=== PATIENT | female | born 1940 | race Caucasian/White ===

== ENCOUNTER 2022-12-04 13:18 | Inpatient (IN) ==
[2022-12-04 15:31] LABS: Basophils # (auto) 0.04 K/uL (0-0.2); Basophils % (auto) 0.3 %; Eosinophils # (auto) 0.16 K/uL (0-0.50); Eosinophils % (auto) 1.3 %; Hematocrit (blood only) 34.9 % (37.0-47.0); Hemoglobin 11.4 g/dl (12.0-16.0); Immature Granulocytes # (auto) 0.05 K/uL (0.01-0.20); Immature Granulocytes % (auto) 0.4 %; Lymphocytes % (auto) 12.6 %; Mean Corpuscular Hemoglobin 28.6 pg (25.0-34.0); Mean Corpuscular Hgb Conc 32.7 g/dL (32.0-36.0); Mean Corpuscular Volume 87.7 fL (80.0-100.0); Mean Platelet Volume 9.5 fL (9.4-12.4); Monocytes # (auto) 0.61 K/uL (0.11-0.59); Monocytes % (auto) 5.1 %; Neutrophils # (auto) 9.53 K/uL (1.40-6.50); Neutrophils % (auto) 80.3 %; Platelet Count 325 K/uL (130-400); RDW Coefficient of Variation 14.8 % (11.5-14.5); RDW Standard Deviation 47.6 fL (36.4-46.3); Red Blood Count 3.98 M/uL (4.20-5.40); White Blood Count 11.89 K/ul (4.8-10.8)
[2022-12-04 15:39] LABS: Alanine Aminotransferase 13 U/L (7-52); Albumin Level 4.2 gm/dl (3.4-5.0); Alkaline Phosphatase 40 U/L (34-104); Anion Gap 7 (3-11); Aspartate Aminotransferase 16 U/L (13-39); BUN Creatinine Ratio 34.4 (10-20); Bilirubin,Total 0.5 mg/dl (0.2-1.0); Blood Urea Nitrogen 31 mg/dl (6-23); Calcium 10.1 mg/dl (8.5-10.1); Carbon Dioxide 30 mmol/L (21-32); Chloride 98 mmol/L (98-107); Est GFR (Non-African American) 60.4 ml/min; Globulin 4.2 gm/dl (2.5-4.0); Glucose 104 mg/dl (70-99(Fasting)); Potassium 4.5 mmol/L (3.5-5.1); Sodium 135 mmol/L (136-145); Total Protein 8.4 gm/dl (6.0-8.3)
--- NOTE | 2022-12-04 16:28 | Emergency Department Note ---
Impression & Plan Decubitus ulcer of sacral area, Atrial fibrillation, Hypoxia, Subtherapeutic international normalized ratio (INR) ED Provider Note ED Provider Note NAME: BIANCA FLORENCE AGE:82 SEX: Female : 1940 ARRIVES VIA: Private vehicle INFORMANT: Patient ED PROVIDER(s): Hellen Jarvis DO CHIEF COMPLAINT: Worsening sacral wound HPI: This is an 82-year-old female who presents emergency department due to concern for worsening sacral wound. Patient states she has had a wound for the last 3 years. She has been to her family doctor several times about this and they have never sent her for any specialist or wound care evaluation. She states she has noticed recently and now has increased drainage and a foul smelling discharge. She denies any increased pain. She denies fevers or chills. Patient is anticoagulated due to history of atrial fibrillation. No other changes to her overall health. Patient initially seen in the B pod sub[place] while seated in a wheelchair. PAST MEDICAL HISTORY:See Below PAST SURGICAL HISTORY:See Below FAMILY HISTORY:See Below SOCIAL HISTORY:See Below HOME MEDICATIONS:See Below ALLERGIES:See Below VITALS:See Below PHYSICAL EXAMINATION: GENERAL: alert, well appearing, well nourished, no distress, non-toxic EYE EXAM: normal conjunctiva, PERRL and EOM's grossly intact OROPHARYNX: no exudate, no erythema, lips, buccal mucosa, and tongue normal and mucous membranes are moist NECK: supple, no nuchal rigidity, no adenopathy, non-tender LUNGS: Clear to auscultation. Normal chest wall mechanics, no w/r/r HEART: no murmurs, S1 normal and S2 normal ABDOMEN: abdomen soft, non-tender, normo-active bowel sounds, no masses, no rebound or guarding. BACK: Back is symmetrical on inspection and there is no deformity, no midline tenderness, no CVA tenderness. SKIN: no rashes, petechiae, orbruising UPPER EXTREMITIES: upper extremities are grossly normal. FROM, nml pulses b/l. LOWER EXTREMITIES: No pitting edema. FROM, nml pulses b/l. NEURO EXAM: Normal sensorium, cranial nerves II-XII grossly intact, normal speech, no facial droop,nogross weakness of arms, no gross weakness of legs. Gross sensation intact. No ataxia. Vital Signs: reviewed and remarkable Differential Diagnosis: [] MEDICAL DECISION MAKING: This is an 82 yo female who presents to the ER due to concern for possible infection at chronic sacral decub ulcer. Patient afebrile, VS stable. Labs drawn and sent and IV established per nursing protocol prior to my evaluation as she presented on a day of high volume and acuity. Additional labs added following my initial exam in the waiting room. After she was placed in a regular room, the wound was examined, culture obtained, and after discussion, pt sent for CT imaging. CT without abscess or evidence of osteomyelitis. In the interim, pt had a brief episode of hypoxia, but denied SOB or CP. No recent URI symptoms. After attempting to wean her, she dropped her sats again. Given unclear etiology and subtherapeutic INR, CT chest ordered to r/o PE or infection. VS otw stable throughout. Case discussed with hospitalist for additional evaluation. Patient aware of all results, verbalized understanding and was in agreement with the plan. Consultation(s): 2054: Disucssed with Dr. Hansen. ER Treatment Provided: See below 1721: Patient now on room C3 and in a gown. She was examined at bedside. Sacral wound extensive approximately 6 cm in diameter through the subcutaneous tissue. Scant drainage noted. Wound culture collected. 2031: Patient updated at bedside. She was noted by nursing staff to be hypoxic to 88% was placed on 2 L. Patient denied any shortness of breath. I did atte mpt to wean patient back off oxygen, unfortunately she desaturated to 86% again. She denies chest pain or sense of being short of breath. Diagnostics Interpreted By Me: -ECG: [] -Cardiac Monitoring: An order was placed for continuous cardiac monitoring. The monitor shows a rate of 88 with atrial fibrillation rhythm. -Laboratory studies: As stated above and show below. -Imaging studies: [] Triage Nursing Note Reviewed Prior/Outside Records Reviewed Procedures: [] Critical Care: [] Past Med/Surg History Medical History (Updated 12/05/22 @ 14:18 by Hellen Jarvis DO) Atrial fibrillation Decubitus ulcer of sacral area Degenerative disc disease, lumbar DM type 2 (diabetes mellitus, type 2) HLD (hyperlipidemia) HTN (hypertension) Lumbar stenosis Spinal stenosis Surgical History (Updated 12/04/22 @ 21:10 by PAVITHRA Pedro-C) Hx of cervical spine surgery Social History Smoking Status: Never smoker Hx Alcohol Use: No Hx Substance Use: No Preferred Language: [place] Islander Communication Ability: Effective Goggles Assembler Required: No Beliefs That Will Affect Care: None Current Living Situation: Alone Current Living Situation Comment: Lives in house Feels Safe at Home: Yes Safety Concerns: Feels Safe At This Time Assistive Devices: Scooter/Electric Scooter Allergies Allergies Allergy/AdvReac Type Severity Reaction Status Date / Time cortisone Allergy Unknown unknown Verified 12/04/22 21:17 Home Meds Home Medications Medication Instructions Recorded Confirmed acetaminophen 500 mg tablet 1,000 mg PO Q6H PRN Pain 12/04/22 12/04/22 (Tylenol Extra Strength) aspirin 81 mg tablet,delayed 81 mg PO DAILY 12/04/22 12/04/22 release carvedilol 25 mg tablet 25 mg PO BID 12/04/22 12/04/22 citalopram 20 mg tablet 20 mg PO DAILY 12/04/22 12/04/22 cyanocobalamin (vitamin B-12) 100 1,000 mcg PO DAILY 12/04/22 12/04/22 mcg tablet (Vitamin B-12) digoxin 125 mcg (0.125 mg) tablet 0.125 mg PO DAILY 12/04/22 12/04/22 gabapentin 100 mg capsule 100 mg PO HS 12/04/22 12/04/22 losartan 50 mg tablet 50 mg PO DAILY 12/04/22 12/04/22 metformin 850 mg tablet 850 mg PO BID 12/04/22 12/04/22 nitrofurantoin 100 mg PO DAILY 12/04/22 12/04/22 monohydrate/macrocrystals 100 mg capsule pioglitazone 30 mg tablet 30 mg PO DAILY 12/04/22 12/04/22 vit no.95-ferrous 1 tab PO DAILY 12/04/22 12/04/22 fumarate 28 mg-folic acid 800 mcg tablet () triamterene 37.5 1 cap PO DAILY 12/04/22 12/04/22 mg-hydrochlorothiazide 25 mg capsule warfarin 6 mg tablet (Jantoven) 3 - 6 mg PO DIRECTED 12/04/22 12/04/22 Results & Data (ED) Vital Signs Vital Signs - 24 hr 12/04/22 16:41 12/04/22 17:00 12/04/22 18:13 Pulse Rate 72 Pulse Rate [Apical] 90 Respiratory Rate 18 Respiratory Depth Blood Pressure [Right Arm] 152/73 H Blood Pressure Mean [Right Arm] 99 Pulse Oximetry 91 88 L Oxygen Delivery Method Room Air Oxygen Flow Rate Oxygen Flow Rate - Titration 2 Pulse Oximetry Post Tiitration 95 12/04/22 19:00 12/04/22 20:46 Pulse Rate 86 Pulse Rate [Apical] 80 Respiratory Rate 18 Respiratory Depth Normal Blood Pressure [Right Arm] 158/79 H Blood Pressure Mean [Right Arm] 105 Pulse Oximetry 99 Oxygen Delivery Method Nasal Cannula Oxygen Flow Rate 2 Oxygen Flow Rate - Titration Pulse Oximetry Post Tiitration Laboratory Data 12/04/22 15:10 12/04/22 15:10 Lab Results 12/04/22 12/04/22 12/04/22 Range/Units 15:10 15:10 18:16 WBC 11.89 H (4.8-10.8) K/ul RBC 3.98 L (4.20-5.40) M/uL Hgb 11.4 L (12.0-16.0) g/dl Hct 34.9 L (37.0-47.0) % MCV 87.7 (80.0-100.0) fL MCH 28.6 (25.0-34.0) pg MCHC 32.7 (32.0-36.0) g/dL RDW Std Deviation 47.6 H (36.4-46.3) fL RDW Coeff of Ankush 14.8 H (11.5-14.5) % Plt Count 325 (130-400) K/uL MPV 9.5 (9.4-12.4) fL Immature Gran % (Auto) 0.4 % Neut % (Auto) 80.3 % Lymph % (Auto) 12.6 % Latimer % (Auto) 5.1 % Eos % (Auto) 1.3 % Baso % (Auto) 0.3 % Neut # (Auto) 9.53 H (1.40-6.50) K/uL Lymph # (Auto) 1.50 (1.2-3.4) K/uL Latimer # (Auto) 0.61 H (0.11-0.59) K/uL Eos # (Auto) 0.16 (0-0.50) K/uL Baso # (Auto) 0.04 (0-0.2) K/uL Immature Gran # (Auto) 0.05 (0.01-0.20) K/uL PT 17.7 H (9.0-12.0) Seconds INR 1.7 H (0.9-1.1) ABG pH (7.35-7.45) ABG pCO2 (35-46) mmHg ABG pO2 (80-95) mmHg ABG HCO3 (19-24) mmol/L ABG O2 Saturation (90-95) % ABG Base Excess (-9-1.8) mEq/L Harshal Test (Pos) Oxygen Given Sodium 135 L (136-145) mmol/L Potassium 4.5 (3.5-5.1) mmol/L Chloride 98 (98-107) mmol/L Carbon Dioxide 30 (21-32) mmol/L Anion Gap 7 (3-11) BUN 31 H (6-23) mg/dl Creatinine 0.90 (0.6-1.2) mg/dl Est Cr Clr Drug Dosing Not Reportable Est GFR ( Amer) 70.0 ml/min Est GFR (Non-Af Amer) 60.4 ml/min BUN/Creatinine Ratio 34.4 H (10-20) Glucose 104 H (70-99(Fasting)) mg/dl Calcium 10.1 (8.5-10.1) mg/dl Magnesium (1.7-2.4) mg/dl Total Bilirubin 0.5 (0.2-1.0) mg/dl AST 16 (13-39) U/L ALT 13 (7-52) U/L Alkaline Phosphatase 40 (34-104) U/L Troponin I High Sens (0-14) pg/ml Total Protein 8.4 H (6.0-8.3) gm/dl Albumin 4.2 (3.4-5.0) gm/dl Globulin 4.2 H (2.5-4.0) gm/dl Albumin/Globulin Ratio 1.0 (0.9-2) Digoxin (0.8-2.0) ng/ml 12/04/22 12/04/22 12/04/22 Range/Units 21:06 21:06 21:06 WBC (4.8-10.8) K/ul RBC (4.20-5.40) M/uL Hgb (12.0-16.0) g/dl Hct (37.0-47.0) % MCV (80.0-100.0) fL MCH (25.0-34.0) pg MCHC (32.0-36.0) g/dL RDW Std Deviation (36.4-46.3) fL RDW Coeff of Ankush (11.5-14.5) % Plt Count (130-400) K/uL MPV (9.4-12.4) fL Immature Gran % (Auto) % Neut % (Auto) % Lymph % (Auto) % Latimer % (Auto) % Eos % (Auto) % Baso % (Auto) % Neut # (Auto) (1.40-6.50) K/uL Lymph # (Auto) (1.2-3.4) K/uL Latimer # (Auto) (0.11-0.59) K/uL Eos # (Auto) (0-0.50) K/uL Baso # (Auto) (0-0.2) K/uL Immature Gran # (Auto) (0.01-0.20) K/uL PT (9.0-12.0) Seconds INR (0.9-1.1) ABG pH 7.48 H (7.35-7.45) ABG pCO2 46 (35-46) mmHg ABG pO2 93 (80-95) mmHg ABG HCO3 34 H (19-24) mmol/L ABG O2 Saturation 99.3 H (90-95) % ABG Base Excess 9.4 H (-9-1.8) mEq/L Harshal Test Pos (Pos) Oxygen Given 2L Sodium (136-145) mmol/L Potassium (3.5-5.1) mmol/L Chloride (98-107) mmol/L Carbon Dioxide (21-32) mmol/L Anion Gap (3-11) BUN (6-23) mg/dl Creatinine (0.6-1.2) mg/dl Est Cr Clr Drug Dosing Est GFR ( Amer) ml/min Est GFR (Non-Af Amer) ml/min BUN/Creatinine Ratio (10-20) Glucose (70-99(Fasting)) mg/dl Calcium (8.5-10.1) mg/dl Magnesium 2.0 (1.7-2.4) mg/dl Total Bilirubin (0.2-1.0) mg/dl AST (13-39) U/L ALT (7-52) U/L Alkaline Phosphatase (34-104) U/L Troponin I High Sens 8.6 (0-14) pg/ml Total Protein (6.0-8.3) gm/dl Albumin (3.4-5.0) gm/dl Globulin (2.5-4.0) gm/dl Albumin/Globulin Ratio (0.9-2) Digoxin 1.2 (0.8-2.0) ng/ml Administered Medications Aspirin (Aspirin 81 Mg Ectab) 81 mg PO DAILY MIKE Stop: 01/04/23 08:59 Last Admin: 12/05/22 08:31 Dose: 81 mg Documented By: POLA Carvedilol (Carvedilol 12.5 Mg Tab) 12.5 mg PO BID MIKE Stop: 01/04/23 01:30 Last Admin: 12/05/22 08:30 Dose: Not Given Documented By: Admin: 12/05/22 02:15 Dose: 12.5 mg Documented By: HANK Citalopram Hydrobromide (Citalopram 20 Mg Tab) 20 mg PO DAILY MIKE Stop: 01/04/23 08:59 Last Admin: 12/05/22 08:31 Dose: 20 mg Documented By: POLA Cyanocobalamin (Cyanocobalamin (B-12) 500 Mcg Tablet) 1,000 mcg PO DAILY MIKE Stop: 01/04/23 08:59 Last Admin: 12/05/22 08:31 Dose: 1,000 mcg Documented By: POLA Doxycycline Hyclate (Doxycycline Hyclate 100 Mg Cap) 100 mg PO BID MIKE Stop: 12/12/22 08:59 Last Admin: 12/05/22 08:31 Dose: 100 mg Documented By: POLA Gabapentin (Gabapentin 100 Mg Cap) 100 mg PO HS MIKE Stop: 01/04/23 20:59 Last Admin: 12/05/22 08:31 Dose: 100 mg Documented By: POLA Sodium Chloride (Nss 1000ml) 1,000 mls @ 60 mls/hr IV .[id number] ONE Stop: 12/05/22 15:41 Last Admin: 12/05/22 00:35 Dose: 60 mls/hr Documented By: JORGE Cefepime HCl 2,000 mg/ Syringe 20 mls @ 5 mls/min IV Q8H MIKE; Protocol Stop: 12/12/22 08:59 Last Admin: 12/05/22 10:46 Dose: 5 mls/min Documented By: POLA Insulin Aspart (Insulin Aspart Per Unit) 0 units SC ACHS [facility] Stop: 01/04/23 01:30 Last Admin: 12/05/22 12:30 Dose: 2 units Documented By: POLA Co-signed By: PILI Admin: 12/05/22 08:32 Dose: Not Given Documented By: Admin: 12/05/22 04:59 Dose: Not Given Documented By: HANK Co-signed By: NEGRO Losartan Potassium (Losartan Potassium 50 Mg Tab) 50 mg PO DAILY [facility] Stop: 01/04/23 08:59 Last Admin: 12/05/22 08:31 Dose: Not Given Documented By: POLA Senna/Docusate Sodium (Docusate Sodium/Senna 50/8.6mg Tab) 1 tab PO BID [facility] Stop: 01/04/23 05:14 Last Admin: 12/05/22 06:39 Dose: 1 tab Documented By: HANK Tramadol HCl (Tramadol Hcl 50 Mg Tablet) 25 - 50 mg PO Q4H PRN PRN Reason: Pain Stop: 01/04/23 01:30 Last Admin: 12/05/22 01:58 Dose: 50 mg Documented By: NEGRO Discontinued Medications Cefepime HCl (Maxipime) 2,000 mg in 20 mls @ 5 mls/min IV NOW STA; Protocol Stop: 12/04/22 20:50 Last Admin: 12/04/22 21:49 Dose: 5 mls/min Documented By: ERMA Doxycycline Hyclate 100 mg/ (Dextrose) 110 mls @ 50 mls/hr IV NOW STA Stop: 12/04/22 23:24 Last Infusion: 12/05/22 00:40 Dose: 0 mls/hr Documented By: Admin: 12/04/22 22:36 Dose: 50 mls/hr Documented By: ERMA Ioversol (Optiray 350 100ml) 87 ml IV ONCE ONE Stop: 12/04/22 18:26 Last Admin: 12/04/22 18:26 Dose: 87 ml Documented By: GABRIEL Ioversol (Optiray 320 500ml) 113 ml IV ONCE ONE Stop: 12/04/22 21:42 Last Admin: 12/04/22 21:42 Dose: 113 ml Documented By: GABRIEL Lactulose (Lactulose Syrup 20 Gm/30 Ml Udc) 30 gm PO NOW STA Stop: 12/05/22 05:51 Last Admin: 12/05/22 06:39 Dose: 30 gm Documented By: HANK Warfarin Sodium (Warfarin Sod 6 Mg Tab) 6 mg PO NOW ONE Stop: 12/04/22 23:02 Last Admin: 12/05/22 00:34 Dose: 6 mg Documented By: JORGE Imaging Data Radiologist's Impression: Chest CTA 12/04/22 20:45 CT angio chest PE protocol CLINICAL HISTORY: PE TECHNIQUE: Multidetector row helical CT of the chest was performed with angiographic protocol. Coronal and sagittal reformations were obtained. Coronal and sagittal MIPS were obtained from the axial data set and were submitted for review. Automated dose lowering techniques and/or adjustment according to patient size were utilized for this exam. CT DOSE: 352.37 mGy.cm Comparison: None available at the time of this dictation. FINDINGS: Lungs and pleura: Atelectasis versus scarring is seen in the dependent portions of the lungs. Heart and pericardium: Cardiomegaly is seen with biatrial enlargement. Vessels: No evidence of pulmonary embolism. The pulmonary trunk measures 33 mm in diameter. Mediastinum and danny: Subcentimeter lymph nodes are seen. Chest wall and lower neck: Unremarkable. Abdomen: Cholelithiasis is seen without evidence of cholecystitis. Left adrenal lipid rich adenoma noted. Bones: Degenerative changes in the thoracic spine and bilateral glenohumeral joints. IMPRESSION: 1. No pulmonary embolus is seen. There is bilateral atelectasis. 2. Pulmonary hypertension and incidental abdominal findings as above. ACT 112: Negative or not required by law. Electronically signed by: Paul Nye M.D. 12/05/2022 7:[address] SCAN OF THE PELVIS WITH IV CONTRAST CLINICAL HISTORY: Sacral wound with drainage. COMPARISON STUDY: Pelvic CT dated 09/02/2015. TECHNIQUE: Following the IV administration of 87 cc of Optiray 350, CT scan of the pelvis is performed from the pelvic inlet to the proximal femora. Images are reviewed in the axial, sagittal, and coronal planes. IV contrast was administered without complication. A dose lowering technique was utilized adhering to the principles of ALARA. CT DOSE: 673.87 mGy.cm FINDINGS: The bladder is normal as visualized. There are calcified uterine fibroids. No a dnexal lesion is seen. No intraperitoneal free air or ascites is seen in the pelvis. There is advanced atherosclerotic calcification of the distal abdominal aorta and iliac arteries. The vessels appear patent. There is rectosigmoid fecal retention and moderate constipation throughout the visualized colon. Imaged segments of small bowel and colon show no evidence of obstruction. There is perianal soft tissue thickening and mild infiltration. No perianal fluid collection is identified. A wound is suggested in the right buttock along the gluteal crease. There is dermal thickening and mild surrounding inflammation suggesting cellulitis. No fluid collection is seen to indicate abscess. The skeletal structures are osteopenic. No lytic or blastic bony lesion is seen. There is no bony erosion or periostitis. Degenerative change is noted in the hips and sacroiliac joints. There is marked and asymmetric fatty atrophy of the gluteal musculature. IMPRESSION: 1. A wound is suggested in the medial right buttock along the gluteal crease with evidence of surrounding cellulitis. No organized/drainable fluid collection is identified to indicate abscess. 2. There is perianal soft tissue thickening with mild surrounding infiltration. No perianal fluid collection is identified. 3. Rectosigmoid fecal retention and moderate constipation. 4. Fibroid uterus. 5. There is marked and asymmetric fatty atrophy of the gluteal musculature. ACT 112: Negative or not required by law. Dictated: 12/04/2022 6:34 PM Transcribed: 12/04/2022 6:52 PM [facility] [id number] [email or web address] Electronically signed by: Octavio Weber M.D. 12/04/2022 7:34 PM CTA chest: Impression: No pulmonary embolism. Cardiomegaly. Coronary artery atherosclerotic calcifications. Small pericardial effusion. Left adrenal adenoma measuring up to 2.6 cm. Calculi filled gallbladder. Hypodensity in the right lobe of the liver. Degenerative change in the spine and shoulders. Radiologist: Michael Multani MD Discharge Plan Visit Data Chief Complaint: Illness Stated Complaint: SORE ED Provider: Pheasant,Hellen S. Discharge Problem: Decubitus ulcer of sacral area, Atrial fibrillation, Hypoxia, Subtherapeutic international normalized ratio (INR) Patient Disposition: Admitted As Inpatient Discharge Instructions Interventions: ED Discharge Assessment Last Done: 12/05/22 01:14
[2022-12-04] MEDS ORDERED: OPTIRAY 350 100ml IV ONE (18:25)
[2022-12-04 19:07] LABS: INR 1.7 (0.9-1.1); Prothrombin Time 17.7 Seconds (9.0-12.0)
--- NOTE | 2022-12-04 19:36 | CT Scan Report ---
CT SCAN OF THE PELVIS WITH IV CONTRAST CLINICAL HISTORY: Sacral wound with drainage. COMPARISON STUDY: Pelvic CT dated 09/02/2015. TECHNIQUE: Following the IV administration of 87 cc of Optiray 350, CT scan of the pelvis is performe d from the pelvic inlet to the proximal femora. Images are reviewed in the axial, sagittal, and coron al planes. IV contrast was administered without complication. A dose lowering technique was utilized adhering to the principles of ALARA. CT DOSE: 673.87 mGy.cm FINDINGS: The bladder is normal as visualized. There are calcified uterine fibroids. No adnexal lesion is seen. No intraperitoneal free air or ascites is seen in the pelvis. There is advanced atherosclerotic calc ification of the distal abdominal aorta and iliac arteries. The vessels appear patent. There is recto sigmoid fecal retention and moderate constipation throughout the visualized colon. Imaged segments of small bowel and colon show no evidence of obstruction. There is perianal soft tissue thickening and mild infiltration. No perianal fluid collection is ident ified. A wound is suggested in the right buttock along the gluteal crease. There is dermal thickening and mild surrounding inflammation suggesting cellulitis. No fluid collection is seen to indicate abs cess. The skeletal structures are osteopenic. No lytic or blastic bony lesion is seen. There is no bony ero amber or periostitis. Degenerative change is noted in the hips and sacroiliac joints. There is marked and asymmetric fatty atrophy of the gluteal musculature. IMPRESSION: 1. A wound is suggested in the medial right buttock along the gluteal crease with evidence of surroun ding cellulitis. No organized/drainable fluid collection is identified to indicate abscess. 2. There is perianal soft tissue thickening with mild surrounding infiltration. No perianal fluid col lection is identified. 3. Rectosigmoid fecal retention and moderate constipation. 4. Fibroid uterus. 5. There is marked and asymmetric fatty atrophy of the gluteal musculature. ACT 112: Negative or not required by law. Dictated: 12/04/2022 6:34 PM Transcribed: 12/04/2022 6:52 PM [facility] [id number] [email or web address] Electronically signed by: Octavio Weber M.D. 12/04/2022 7:34 PM
[2022-12-04] MEDS ORDERED: CEFEPIME 2,000 MG/20 ML VIAL IV STA (20:47)
--- NOTE | 2022-12-04 21:12 | History & Physical Report ---
Date of Service December 04, 2022 Assessment & Plan (1) Decubitus ulcer of sacral area: (2) Fecal retention: Plan: - Admit to med tele -follow blood cultures, wound culture, start on IV antibiotic- given cefepime IV in the ER, add doxycycline IV, check nasal MRSA swab -WBC 11.89, afebrile -Wound care nurse consult, frequent turn/repo for pressure offloading -Tapia catheter due to needs for self catheterization twice daily. Pt reports this has been going on for multiple years. (3) Atrial fibrillation: Plan: -INR noted to be 1.7, trend with a.m. labs, subtherapeutic -Outpatient Coumadin dosing is 6 mg daily except 3 mg on Wednesdays and Saturdays, she was instructed to take half tablet as her INR was over 3 earlier this week. She typically does home Coumadin checks on Wednesdays. -Concern for possible PE with subtherapeutic Coumadin dosing and bout of hypoxia experienced in the CT scanner, checking CT angio now - no current sats reviewed showing hypoxia. Pt is currently on 2 L with sats at 99%. Denies respiratory sx. -Check digoxin level -Trend trop (4) HTN (hypertension): (5) HLD (hyperlipidemia): Plan: - Cont carvedilol, digoxin, losartan, triamterene/HCTZ for now (6) DM type 2 (diabetes mellitus, type 2): Plan: -Hold pioglitazone, metformin with receiving contrast CTs -ISS with Accu-Cheks ACHS -Check A1c with a.m. labs DVT PPx: - teds, scds, Coumadin CODE: Full code Dispo: From home, likely to remain in the hospital x 1-2 days A total of 65 minutes were spent with greater than 50% of that time face to face with the patient, personally reviewing all current laboratories, imaging studies, past medication reconciliation, outpatient chart review, and discussion with specialists to collaborate care for the patient with attending. Please see attending documentation for corrections and/or additions. History of Present Illness Chief Complaint: Sacral decub ulceration Primary Care Provider: Diomedes Petersen M.D. This is an 82-year-old female with PMHx of DM type II, history of A-fib on Coumadin, HTN, CVA, DM type II, HLD, constipation, spinal stenosis and chronic back pain, who presents to the hospital with sacral wound. She notes that she has been dealing with a sacral wound of since the beginning of the COVID pandemic in spring 2019. She notes that due to her inability to walk, because of chronic back pain she spends the majority of her time seated, and uses a Hover[employer] scooter. She notes that recently the wound has been getting more painful, and seeping clear fluid and smells bad. She was supposed to have an in-home nurse be arranged, however this has not yet happened. She feels that her wound has been left unattended too long and therefore presented to the ER. She denies any fevers, chills or sweats. She denies any pus drainage from the wound. She admits that she has issues with her bowels very frequently: Constipation, fecal retention, and sometimes manually disimpact's on her own. She reports needing to self catheterize herself for urinary retention twice daily routinely, denies dysuria or hematuria. Patient drinks large amounts of water. On a daily basis she mixes mineral oil with juice to help move her bowels, which that does not work sometimes. This her son brought her here but is no longer bedside as he has gone home as it is late in the evening currently. While she was here in the ER, patient was taken to get a CT of the abdomen and pelvis where she then became acutely hypoxic while in the CT scanner. She d enies any current shortness of breath, chest heaviness, cough or current respiratory illness. She admits that she was positive for COVID around 2021 but feels she is nearly back to her normal self except for a decreased appetite. She does not wear any supplemental oxygen at baseline. Allergies Allergy/AdvReac Type Severity Reaction Status Date / Time cortisone Allergy Unknown unknown Verified 12/04/22 21:17 Home Medications Medication Instructions Recorded Confirmed Type acetaminophen 500 mg tablet 1,000 mg PO Q6H PRN Pain 12/04/22 12/04/22 History (Tylenol Extra Strength) aspirin 81 mg tablet,delayed 81 mg PO DAILY 12/04/22 12/04/22 History release carvedilol 25 mg tablet 25 mg PO BID 12/04/22 12/04/22 History citalopram 20 mg tablet 20 mg PO DAILY 12/04/22 12/04/22 History cyanocobalamin (vitamin B-12) 100 1,000 mcg PO DAILY 12/04/22 12/04/22 History mcg tablet (Vitamin B-12) digoxin 125 mcg (0.125 mg) tablet 0.125 mg PO DAILY 12/04/22 12/04/22 History gabapentin 100 mg capsule 100 mg PO HS 12/04/22 12/04/22 History losartan 50 mg tablet 50 mg PO DAILY 12/04/22 12/04/22 History metformin 850 mg tablet 850 mg PO BID 12/04/22 12/04/22 History nitrofurantoin 100 mg PO DAILY 12/04/22 12/04/22 History monohydrate/macrocrystals 100 mg capsule pioglitazone 30 mg tablet 30 mg PO DAILY 12/04/22 12/04/22 History vit no.95-ferrous 1 tab PO DAILY 12/04/22 12/04/22 History fumarate 28 mg-folic acid 800 mcg tablet () triamterene 37.5 1 cap PO DAILY 12/04/22 12/04/22 History mg-hydrochlorothiazide 25 mg capsule warfarin 6 mg tablet (Jantoven) 3 - 6 mg PO DIRECTED 12/04/22 12/04/22 History Past Med/Surg History Medical History (Updated 12/04/22 @ 21:51 by Taylor Blake PA-C) Atrial fibrillation Decubitus ulcer of sacral area Degenerative disc disease, lumbar DM type 2 (diabetes mellitus, type 2) HLD (hyperlipidemia) HTN (hypertension) Lumbar stenosis Spinal stenosis Surgical History (Updated 12/04/22 @ 21:10 by Taylor Blake PA-C) Hx of cervical spine surgery Social History Smoking Status: Never smoker Hx Alcohol Use: No Hx Substance Use: No Preferred Language: Malawian Communication Ability: Effective Alumni Relations Coordinator Required: No Beliefs That Will Affect Care: None Current Living Situation: Alone Current Living Situation Comment: Lives in house Feels Safe at Home: Yes Safety Concerns: Feels Safe At This Time Assistive Devices: None Review of Systems Review of Systems: Constitutional: No fever, sweats or chills Eyes: No diplopia, no worsening or blurred vision ENT: normal hearing, no trouble swallowing Respiratory: No cough, sputum, dyspnea at rest or on exertion Cardiovascular: No chest pain, tightness or palpitations Abdomen: No pain, nausea, vomiting, diarrhea or constipation Musculoskeletal: No joint pain, calf pain, swelling Back: Spinal stenosis, sacral decubitus ulceration as per HPI Neurologic: No weakness, numbness/tingling, + uses scooter/sits most of the time due to chronic back pain Psychiatric: No anxiety or depression Skin: No rash or itch Physical Exam Physical Exam: General: awake, alert, no apparent distress, obese with BMI 31.2 Head: Normocephalic, atraumatic ENT: PERRL, EOMI, no pharyngeal exudate, mucous membranes moist Chest: Clear to auscultation, on room air, no adventitious breath sounds Cardiac: irregularly irregular, rate controlled with heart rate of 86, no murmur, no JVD, normal peripheral pulses, good capillary refill Abdominal: NABS x 4 quadrants, soft, nondistended, nontender to palpation, no rebound or guarding Back: Sacral decubitus wound grade 3, minimal surrounding erythema, foul- smelling, clear serosanguineous fluid draining from it, no purulent material Extremities: Normal inspection, no peripheral edema or erythema, calfs nontender to palpation Psych: Normal mood and affect Neuro: AAO x 3, strength intact bilaterally and rated 5/5, no motor deficits, speech is clear, no peripheral sensory deficits Results & Data Results & Data ([facility]) Vital Signs (Past 12 Hours) Vital Signs Temp Pulse Pulse Resp BP BP Pulse Ox 12/04/22 20:46 86 12/04/22 19:00 80 18 158/79 H 99 12/04/22 18:13 88 L 12/04/22 17:00 90 18 152/73 H 91 12/04/22 16:41 72 12/04/22 13:48 36.5 C 92 H 18 144/69 H 96 O2 Del Method O2 Flow Rate 12/04/22 20:46 12/04/22 19:00 Nasal Cannula 2 12/04/22 18:13 Room Air 12/04/22 17:00 12/04/22 16:41 12/04/22 13:48 Room Air Laboratory Results 12/04/22 17:45 Gram Stain - Pending Sacrum Wound Culture - Pending 12/04/22 12/04/22 12/04/22 18:16 15:10 15:10 WBC 11.89 H RBC 3.98 L Hgb 11.4 L Hct 34.9 L MCV 87.7 MCH 28.6 MCHC 32.7 RDW Std Deviation 47.6 H RDW Coeff of Ankush 14.8 H Plt Count 325 MPV 9.5 Immature Gran % (Auto) 0.4 Neut % (Auto) 80.3 Lymph % (Auto) 12.6 [place] % (Auto) 5.1 Eos % (Auto) 1.3 Baso % (Auto) 0.3 Neut # (Auto) 9.53 H Lymph # (Auto) 1.50 [place] # (Auto) 0.61 H Eos # (Auto) 0.16 Baso # (Auto) 0.04 Immature Gran # (Auto) 0.05 PT 17.7 H INR 1.7 H Sodium 135 L Potassium 4.5 Chloride 98 Carbon Dioxide 30 Anion Gap 7 BUN 31 H Creatinine 0.90 Est Cr Clr Drug Dosing Not Reportable Est GFR ( Amer) 70.0 Est GFR (Non-Af Amer) 60.4 BUN/Creatinine Ratio 34.4 H Glucose 104 H Calcium 10.1 Total Bilirubin 0.5 AST 16 ALT 13 Alkaline Phosphatase 40 Total Protein 8.4 H Albumin 4.2 Globulin 4.2 H Albumin/Globulin Ratio 1.[address] 12/04/22 17:38 CT SCAN OF THE PELVIS WITH IV CONTRAST CLINICAL HISTORY: Sacral wound with drainage. COMPARISON STUDY: Pelvic CT dated 09/02/2015. TECHNIQUE: Following the IV administration of 87 cc of Optiray 350, CT scan of the pelvis is performed from the pelvic inlet to the proximal femora. Images are reviewed in the axial, sagittal, and coronal planes. IV contrast was administered without complication. A dose lowering technique was utilized adhering to the principles of ALARA. CT DOSE: 673.87 mGy.cm FINDINGS: The bladder is normal as visualized. There are calcified uterine fibroids. No adnexal lesion is seen. No intraperitoneal free air or ascites is seen in the pelvis. There is advanced atherosclerotic calcification of the distal abdominal aorta and iliac arteries. The vessels appear patent. There is rectosigmoid fecal retention and moderate constipation throughout the visualized colon. Imaged segments of small bowel and colon show no evidence of obstruction. There is perianal soft tissue thickening and mild infiltration. No perianal fluid collection is identified. A wound is suggested in the right buttock along the gluteal crease. There is dermal thickening and mild surrounding inflammation suggesting cellulitis. No fluid collection is seen to indicate abscess. The skeletal structures are osteopenic. No lytic or blastic bony lesion is seen. There is no bony erosion or periostitis. Degenerative change is noted in the hips and sacroiliac joints. There is marked and asymmetric fatty atrophy of the gluteal musculature. IMPRESSION: 1. A wound is suggested in the medial right buttock along the gluteal crease with evidence of surrounding cellulitis. No organized/drainable fluid collection is identified to indicate abscess. 2. There is perianal soft tissue thickening with mild surrounding infiltration. No perianal fluid collection is identified. 3. Rectosigmoid fecal retention and moderate constipation. 4. Fibroid uterus. 5. There is marked and asymmetric fatty atrophy of the gluteal musculature. ACT 112: Negative or not required by law. Dictated: 12/04/2022 6:34 PM Transcribed: 12/04/2022 6:52 PM Noelle [id number] [email or web address] Electronically signed by: Octavio Weber M.D. 12/04/2022 7:34 PM Code Status & VTE Plan Code Status Full code-discussed with the patient at bedside Supervising Physician Co-Signing Physician Notes IM ATTENDING : Patient seen and examined. History obtained from patient and records. Preceding documentation by Ms. Taylor Blake PA-C reviewed. In addition, patient gives history of possible syncopal event at home a few days ago from not feeling well. COVID-19 test was positive at the ER. Patient has received COVID-19 vaccines in the past. CT chest initial read: No pulmonary embolism. Cardiomegaly. Coronary artery atherosclerotic calcifications. Small pericardial effusion. Left adrenal adenoma measuring up to 2.6 cm. Calculi filled gallbladder. Hypodensity in the right lobe of the liver. Degenerative change in the spine and shoulders. FINAL ASSESSMENT AND PLAN as follows : Transient hypoxemia ABG reassuring COVID-19 illness without respiratory symptoms Patient nontoxic Possible syncopal event Rule out orthostasis, cardiac dysfunction Chronic decubitus wound No sepsis for now A-fib, rate controlled, INR slightly subtherapeutic Past history CVA Hypertension, stable Chronic anemia, hemoglobin at baseline DM2 on oral medications, well-controlled as of outpatient hemoglobin A1c of 5.4 last year Chronic constipation Possible functional disability OBS Medical telemetry given possible syncopal event Check orthostatic vitals, TTE for syncope work-up Supportive management for COVID-19 illness CS, Doxycycline and Cefepime for decubitus wound infection Wound care nurse consult Bowel regimen ISS BG goal 1 10-1 40, carb count coverage, update hemoglobin A1c PT OT eval DVT prophylaxis. Coumadin iron goal between 2 and 3 Full code Text document was generated using [employer] voice recognition software. It may contain grammatical or spelling errors. Kindly contact undersigned for clarification of any documentation item in question.
[2022-12-04] MEDS ORDERED: DOXYCYCLINE HYCLATE 100 MG in DEXTROSE 5% 100 ML IV STA (21:13)
[2022-12-04 21:33] LABS: Base Excess ABG 9.4 mEq/L (-9-1.8); HCO3 ABG 34 mmol/L (19-24); Oxygen Saturation ABG 99.3 % (90-95); PCO2 ABG 46 mmHg (35-46); PO2 ABG 93 mmHg (80-95); pH ABG 7.48 (7.35-7.45)
[2022-12-04 21:34] LABS: Allen Test Pos (Pos)
[2022-12-04] MEDS ORDERED: OPTIRAY 320 500ml IV ONE (21:41)
[2022-12-04 22:05] LABS: Troponin I High Sensitivity 8.6 pg/ml (0-14)
[2022-12-04] MEDS ORDERED: WARFARIN SOD 6 MG TAB PO ONE (23:01)
[2022-12-04] MEDS ORDERED: SODIUM CHLORIDE 0.9% 1000ML 1,000 ML IV ONE (23:02)
[2022-12-05 00:13] LABS: Influenza A virus by PCR Negative (Neg); Influenza B virus by PCR Negative (Neg); RSV by PCR Negative (Neg)
[2022-12-05 00:18] LABS: SARS CoV2 RNA(COVID-19) Ceph POSITIVE (Negative)
[2022-12-05] MEDS ORDERED: GLUCOSE 40% GEL 15 GM TUBE PO PRN (01:31)
[2022-12-05] MEDS ORDERED: PROMETHAZINE HCL 12.5 MG in SODIUM CHLORIDE 0.9% 50 ML IV PRN (01:31)
[2022-12-05] MEDS ORDERED: GLUCOSE 10 TAB/TUBE PO PRN (01:31)
[2022-12-05] MEDS ORDERED: DEXTROSE 50% 50 ML SYRINGE IV PRN (01:31)
[2022-12-05] MEDS ORDERED: GLUCAGON FOR INJ 1 MG VIAL SQ PRN (01:31)
[2022-12-05] MEDS ORDERED: CARBOHYDRATES FOR HYPOGLYCEMIA PO PRN (01:31)
[2022-12-05] MEDS: traMADol HCL 50 MG TABLET PO PRN ×2 (01:58→21:09)
[2022-12-05] MEDS: carvediloL 12.5 MG TAB PO SCH ×3 (02:15→21:07)
[2022-12-05] MEDS: INSULIN ASPART PER UNIT SC SCH ×5 (04:59→21:12)
[2022-12-05] MEDS ORDERED: POLYETHYLENE (MIRALAX) 17 GM PACK PO PRN (05:12)
[2022-12-05] MEDS ORDERED: LACTULOSE SYRUP 20 GM/30 ML UDC PO STA (05:50)
[2022-12-05] MEDS: DOCUSATE SODIUM/SENNA 50/8.6MG TAB PO SCH ×2 (06:39→21:08)
--- NOTE | 2022-12-05 07:13 | CT Scan Report ---
CT angio chest PE protocol CLINICAL HISTORY: PE TECHNIQUE: Multidetector row helical CT of the chest was performed with angiographic protocol. Brown l and sagittal reformations were obtained. Coronal and sagittal MIPS were obtained from the axial ford a set and were submitted for review. Automated dose lowering techniques and/or adjustment according to patient size were utilized for this exam. CT DOSE: 352.37 mGy.cm Comparison: None available at the time of this dictation. FINDINGS: Lungs and pleura: Atelectasis versus scarring is seen in the dependent portions of the lungs. Heart and pericardium: Cardiomegaly is seen with biatrial enlargement. Vessels: No evidence of pulmonary embolism. The pulmonary trunk measures 33 mm in diameter. Mediastinum and danny: Subcentimeter lymph nodes are seen. Chest wall and lower neck: Unremarkable. Abdomen: Cholelithiasis is seen without evidence of cholecystitis. Left adrenal lipid rich adenoma no jessica. Bones: Degenerative changes in the thoracic spine and bilateral glenohumeral joints. IMPRESSION: 1. No pulmonary embolus is seen. There is bilateral atelectasis. 2. Pulmonary hypertension and incidental abdominal findings as above. ACT 112: Negative or not required by law. Electronically signed by: Paul Nye M.D. 12/05/2022 7:11 AM
[2022-12-05 07:54] LABS: Basophils # (auto) 0.06 K/uL (0-0.2); Basophils % (auto) 0.7 %; Eosinophils # (auto) 0.22 K/uL (0-0.50); Eosinophils % (auto) 2.6 %; Hematocrit (blood only) 33.5 % (37.0-47.0); Hemoglobin 10.9 g/dl (12.0-16.0); Immature Granulocytes # (auto) 0.04 K/uL (0.01-0.20); Immature Granulocytes % (auto) 0.5 %; Lymphocytes # (auto) 1.93 K/uL (1.2-3.4); Lymphocytes % (auto) 23.1 %; Mean Corpuscular Hemoglobin 28.9 pg (25.0-34.0); Mean Corpuscular Hgb Conc 32.5 g/dL (32.0-36.0); Mean Corpuscular Volume 88.9 fL (80.0-100.0); Mean Platelet Volume 9.6 fL (9.4-12.4); Monocytes # (auto) 0.76 K/uL (0.11-0.59); Monocytes % (auto) 9.1 %; Neutrophils # (auto) 5.36 K/uL (1.40-6.50); Platelet Count 297 K/uL (130-400); RDW Coefficient of Variation 14.7 % (11.5-14.5); RDW Standard Deviation 47.8 fL (36.4-46.3); Red Blood Count 3.77 M/uL (4.20-5.40); White Blood Count 8.37 K/ul (4.8-10.8)
[2022-12-05 08:08] LABS: BUN Creatinine Ratio 30.1 (10-20); Calcium 9.1 mg/dl (8.5-10.1); Creatinine Clr Calc Pharmacy 61.1 ml/min; Est GFR (African American) 77.2 ml/min; Est GFR (Non-African American) 66.6 ml/min; Potassium 3.8 mmol/L (3.5-5.1)
[2022-12-05 08:13] LABS: INR 1.7 (0.9-1.1); Prothrombin Time 17.9 Seconds (9.0-12.0)
[2022-12-05] MEDS: CITALOPRAM 20 MG TAB PO SCH (08:31)
[2022-12-05] MEDS: LOSARTAN POTASSIUM 50 MG TAB PO SCH (08:31)
[2022-12-05] MEDS: ASPIRIN 81 MG ECTAB PO SCH (08:31)
[2022-12-05] MEDS: CYANOCOBALAMIN (B-12) 500 MCG TABLET PO SCH (08:31)
[2022-12-05] MEDS: DOXYCYCLINE HYCLATE 100 MG CAP PO SCH ×2 (08:31→21:08)
[2022-12-05] MEDS: GABAPENTIN 100 MG CAP PO SCH (08:31)
[2022-12-05] MEDS ORDERED: POLYETHYLENE (MIRALAX) 17 GM PACK PO SCH (09:00)
[2022-12-05 09:20] LABS: Estimated Average Glucose 108 mg/dl; Hemoglobin A1C 5.4 % (4.5-5.6)
[2022-12-05] MEDS: CEFEPIME 2,000 MG in SYRINGE 0 ML IV SCH ×2 (10:46→17:25)
--- NOTE | 2022-12-05 14:59 | Hospitalist Progress Note ---
Date of Service December 05, 2022 Assessment & Plan (1) Decubitus ulcer of sacral area: Plan: Decubitus ulcer of sacral area adjoining right buttock stage III-IV Surrounding cellulitis around this decubital ulcer-please see the picture for more information No evidence of osteomyelitis as per CT scan Will ask for surgical evaluation for possible debridement Follow blood cultures, wound culture, start on IV antibiotic- given cefepime IV in the ER, add doxycycline IV, check nasal MRSA swab WBC 11.89, afebrile Wound care nurse consult, frequent turn/repo for pressure offloading Tapia catheter due to needs for self catheterization twice daily. Pt reports this has been going on for multiple years. Continue current antibiotic (2) COVID-19 virus infection: Plan: Remains asymptomatic except diarrhea Noted to be hypoxic at 1.1 admission Denies any cough and no respiratory symptoms Saturating normally on room air Does not require any treatment for COVID-19 virus infection (3) Fecal retention: Plan: Has had liquid bowel movement She has been feeling much better and denies any abdominal distention or discomfort No nausea no vomiting Continue with bowel regimen (4) Atrial fibrillation: Plan: Chronic atrial fibrillation -INR noted to be 1.7, trend with a.m. labs, subtherapeutic -Outpatient Coumadin dosing is 6 mg daily except 3 mg on Wednesdays and Saturdays, she was instructed to take half tablet as her INR was over 3 earlier this week. She typically does home Coumadin checks on Wednesdays. -Concern for possible PE with subtherapeutic Coumadin dosing and bout of hypoxia experienced in the CT scanner, checking CT angio now - no current sats reviewed showing hypoxia. Pt is currently on 2 L with sats at 99%. Denies respiratory sx. -Check digoxin level-normal at 1.2 -Trend trop-normal, no need to trend (5) HTN (hypertension): Plan: Remains on the lower side (6) HLD (hyperlipidemia): Plan: - Cont carvedilol, digoxin, losartan, triamterene/HCTZ for now (7) DM type 2 (diabetes mellitus, type 2): Plan: -Hold pioglitazone, metformin with receiving contrast CTs -ISS with Accu-Cheks ACHS -Check A1c with a.m. labs DVT PPx: - teds, scds, Coumadin CODE: Full code Dispo: From home, likely to remain in the hospital x 1-2 days Admission and Anticipated Discharge Date Admission Date: December 04, 2022 Results & Data Results & Data ([facility]) Vital Signs (Past 12 Hours) Vital Signs Pulse 12/05/22 07:26 63 12/05/22 05:09 79
[2022-12-05] MEDS: DIGOXIN 0.125 MG TAB PO SCH (17:18)
[2022-12-05] MEDS: WARFARIN SOD 6 MG TAB PO SCH (17:18)
[2022-12-05] MEDS: ACETAMINOPHEN 325 MG TAB PO PRN (21:09)
[2022-12-05] MEDS ORDERED: LORATADINE 10 MG TAB PO ONE (23:02)
[2022-12-06] MEDS: CEFEPIME 2,000 MG in SYRINGE 0 ML IV SCH ×3 (00:33→22:40)
[2022-12-06 05:53] LABS: Basophils # (auto) 0.05 K/uL (0-0.2); Basophils % (auto) 0.6 %; Eosinophils # (auto) 0.28 K/uL (0-0.50); Eosinophils % (auto) 3.3 %; Hematocrit (blood only) 31.3 % (37.0-47.0); Hemoglobin 10.4 g/dl (12.0-16.0); Immature Granulocytes # (auto) 0.03 K/uL (0.01-0.20); Immature Granulocytes % (auto) 0.4 %; Lymphocytes # (auto) 2.13 K/uL (1.2-3.4); Lymphocytes % (auto) 25.2 %; Mean Corpuscular Hemoglobin 29.1 pg (25.0-34.0); Mean Corpuscular Hgb Conc 33.2 g/dL (32.0-36.0); Mean Corpuscular Volume 87.7 fL (80.0-100.0); Mean Platelet Volume 9.3 fL (9.4-12.4); Monocytes % (auto) 9.5 %; Neutrophils # (auto) 5.16 K/uL (1.40-6.50); Platelet Count 264 K/uL (130-400); RDW Coefficient of Variation 14.8 % (11.5-14.5); RDW Standard Deviation 47.8 fL (36.4-46.3); Red Blood Count 3.57 M/uL (4.20-5.40); White Blood Count 8.45 K/ul (4.8-10.8)
[2022-12-06 06:04] LABS: INR 2.2 (0.9-1.1)
[2022-12-06 07:13] LABS: BUN Creatinine Ratio 27.1 (10-20); Calcium 8.8 mg/dl (8.5-10.1); Creatinine Clr Calc Pharmacy 52.8 ml/min; Est GFR (African American) 64.7 ml/min; Est GFR (Non-African American) 55.9 ml/min; Phosphorus 3.8 mg/dl (2.5-4.9); Potassium 4.2 mmol/L (3.5-5.1)
[2022-12-06] MEDS: INSULIN ASPART PER UNIT SC SCH ×4 (08:31→22:36)
[2022-12-06] MEDS: DOXYCYCLINE HYCLATE 100 MG CAP PO SCH ×2 (08:37→22:39)
[2022-12-06] MEDS: LOSARTAN POTASSIUM 50 MG TAB PO SCH (08:37)
[2022-12-06] MEDS: ASPIRIN 81 MG ECTAB PO SCH (08:37)
[2022-12-06] MEDS: DOCUSATE SODIUM/SENNA 50/8.6MG TAB PO SCH ×2 (08:38→22:38)
[2022-12-06] MEDS: CYANOCOBALAMIN (B-12) 500 MCG TABLET PO SCH (08:38)
[2022-12-06] MEDS: carvediloL 12.5 MG TAB PO SCH ×2 (08:38→22:38)
[2022-12-06] MEDS: CITALOPRAM 20 MG TAB PO SCH (08:38)
--- NOTE | 2022-12-06 13:45 | Surgery Consultation ---
Date of Consultation December 06, 2022 Assessment & Plan (1) Decubitus ulcer of sacral area: 82-year-old woman with sacral decubitus ulcer. Verbal consent was obtained for bedside debridement of the ulcer. The area was prepped and draped with Betadine. Sharp debridement of the ulcer was completed with tenotomy scissors. This was sent back to bleeding tissue. The wound was packed wet-to-dry. She tolerated the procedure without complication. Total area debrided was 12 cm. Wound care has been consulted to see the wound. She may require Santyl in the wound. We will await wound care recommendations. We will continue to follow from afar. History of Present Illness Reason for Consultation: Sacral decubitus ulcer Requesting Physician: Sergio Lizama MD Attending Physician: Sergio Lizama MD History of Present Illness 82-year-old woman presents with shortness of breath/lethargy and COVID infection. She was also noted to have a sacral decubitus ulcer. We have been consulted for possible debridement of the ulcer Allergies Allergy/AdvReac Type Severity Reaction Status Date / Time cortisone Allergy Unknown unknown Verified 12/04/22 21:17 Home Medications Medication Instructions Recorded Confirmed Type acetaminophen 500 mg tablet 1,000 mg PO Q6H PRN Pain 12/04/22 12/04/22 History (Tylenol Extra Strength) aspirin 81 mg tablet,delayed 81 mg PO DAILY 12/04/22 12/04/22 History release carvedilol 25 mg tablet 25 mg PO BID 12/04/22 12/04/22 History citalopram 20 mg tablet 20 mg PO DAILY 12/04/22 12/04/22 History cyanocobalamin (vitamin B-12) 100 1,000 mcg PO DAILY 12/04/22 12/04/22 History mcg tablet (Vitamin B-12) digoxin 125 mcg (0.125 mg) tablet 0.125 mg PO DAILY 12/04/22 12/04/22 History gabapentin 100 mg capsule 100 mg PO HS 12/04/22 12/04/22 History losartan 50 mg tablet 50 mg PO DAILY 12/04/22 12/04/22 History metformin 850 mg tablet 850 mg PO BID 12/04/22 12/04/22 History nitrofurantoin 100 mg PO DAILY 12/04/22 12/04/22 History monohydrate/macrocrystals 100 mg capsule pioglitazone 30 mg tablet 30 mg PO DAILY 12/04/22 12/04/22 History vit no.95-ferrous 1 tab PO DAILY 12/04/22 12/04/22 History fumarate 28 mg-folic acid 800 mcg tablet () triamterene 37.5 1 cap PO DAILY 12/04/22 12/04/22 History mg-hydrochlorothiazide 25 mg capsule warfarin 6 mg tablet (Jantoven) 3 - 6 mg PO DIRECTED 12/04/22 12/04/22 History Patient History Medical History Atrial fibrillation Decubitus ulcer of sacral area Degenerative disc disease, lumbar DM type 2 (diabetes mellitus, type 2) HLD (hyperlipidemia) HTN (hypertension) Lumbar stenosis Spinal stenosis Surgical History Hx of cervical spine surgery Social History Smoking Status: Never smoker Hx Alcohol Use: No Hx Substance Use: No Preferred Language: [place] Communication Ability: Effective Underwriting Account Representative Required: No Beliefs That Will Affect Care: None Current Living Situation: Alone Current Living Situation Comment: Lives in house Feels Safe at Home: Yes Safety Concerns: Feels Safe At This Time Assistive Devices: Scooter/Electric Scooter Physical Exam Physical Exam: NAD, ANO x3 Sacral decubitus ulcer in the midline/right buttock, 3 cm x 3 cm diameter; extending to the subcutaneous tissue; fibrinous exudate and small area of dry gangrene at the base. No tenderness to palpation Results & Data ([facility]) Vital Signs (Past 12 Hours) Vital Signs Temp Pulse Pulse Resp BP BP Pulse Ox 12/06/22 12:08 36.8 C 86 20 161/78 H 90 12/06/22 07:10 84 12/06/22 06:24 36.8 C 77 18 143/72 H 96 12/06/22 03:31 36.9 C 70 18 127/66 94 O2 Del Method 12/06/22 12:08 Room Air 12/06/22 07:10 12/06/22 06:24 Room Air 12/06/22 03:31 Room Air
[2022-12-06] MEDS: WARFARIN SOD 6 MG TAB PO SCH (17:04)
[2022-12-06] MEDS: DIGOXIN 0.125 MG TAB PO SCH (17:04)
--- NOTE | 2022-12-06 17:47 | Hospitalist Progress Note ---
Date of Service December 06, 2022 Assessment & Plan (1) Decubitus ulcer of sacral area: Plan: Decubitus ulcer of sacral area adjoining right buttock stage III-IV Surrounding cellulitis around this decubital ulcer-please see the picture for more information No evidence of osteomyelitis as per CT scan Will ask for surgical evaluation for possible debridement Follow blood cultures, wound culture, start on IV antibiotic- given cefepime IV in the ER, add doxycycline IV, check nasal MRSA swab WBC 11.89, afebrile Wound care nurse consult, frequent turn/repo for pressure offloading Tapia catheter due to needs for self catheterization twice daily. Pt reports this has been going on for multiple years. Continue current antibiotic Appreciate surgery input and recommendation-status post debridement done on 12/05/2022 Appreciate wound care input as well (2) COVID-19 virus infection: Plan: Remains asymptomatic except diarrhea Noted to be hypoxic at 1.1 admission Denies any cough and no respiratory symptoms Saturating normally on room air Does not require any treatment for COVID-19 virus infection (3) Fecal retention: Plan: Has had liquid bowel movement She has been feeling much better and denies any abdominal distention or discomfort No nausea no vomiting Continue with bowel regimen (4) Atrial fibrillation: Plan: Chronic atrial fibrillation -INR noted to be 1.7, trend with a.m. labs, subtherapeutic -Outpatient Coumadin dosing is 6 mg daily except 3 mg on Wednesdays and Saturdays, she was instructed to take half tablet as her INR was over 3 earlier this week. She typically does home Coumadin checks on Wednesdays. -Concern for possible PE with subtherapeutic Coumadin dosing and bout of hypoxia experienced in the CT scanner, checking CT angio now - no current sats reviewed showing hypoxia. Pt is currently on 2 L with sats at 99%. Denies respiratory sx. -Check digoxin level-normal at 1.2 -Trend trop-normal, no need to trend -INR is 2.2 as of 12/06/2022 (5) HTN (hypertension): Plan: Remains on the lower side (6) HLD (hyperlipidemia): Plan: - Cont carvedilol, digoxin, losartan, triamterene/HCTZ for now (7) DM type 2 (diabetes mellitus, type 2): Plan: -Hold pioglitazone, metformin with receiving contrast CTs -ISS with Accu-Cheks ACHS -Check A1c with a.m. labs DVT PPx: - teds, scds, Coumadin CODE: Full code Dispo: From home, likely to remain in the hospital x 1-2 days Admission and Anticipated Discharge Date Admission Date: December 04, 2022 Subjective 12/06/2022 The patient was seen and examined in medical telemetry unit and in the COVID room She has had wound debridement from the sacral area today Denies any respiratory symptoms and no more diarrhea Review of Systems Review of Systems: All systems reviewed and are unremarkable except as noted below Physical Exam Physical Exam: Lying in bed comfortably Constitutional: well developed, well nourished, + ill appearing and average body habitus Eyes: PERRL, conjunctivae normal, anicteric sclerae ENMT: external ear and nose normal, oropharynx normal Respiratory: no respiratory distress Auscultation: + diminished lung sounds and + crackles (Minimal crackles at the bases) Cardiovascular: Rate/Rhythm: regular rate and regular rhythm; not tachycardic Heart Sounds: normal S1 and normal S2; no murmur Extremities: no edema Gastrointestinal (Abdomen): Inspection/Auscultation: normal bowel sounds; abdomen not distended Percussion/Palpation: abdomen soft; abdomen nontender Musculoskeletal: No acute arthritis involving any joint Skin: Has sacral decubiti ulcer over left gluteal area Neurologic: Alert, awake and oriented x3 no focal sensory or motor deficit appreciated Results & Data Results & Data ([facility]) Vital Signs (Past 12 Hours) Vital Signs Temp Pulse Pulse Resp BP BP Pulse Ox 12/06/22 15:36 36.7 C 80 20 126/65 92 12/06/22 12:08 36.8 C 86 20 161/78 H 90 12/06/22 07:10 84 12/06/22 06:24 36.8 C 77 18 143/72 H 96 O2 Del Method 12/06/22 15:36 Room Air 12/06/22 12:08 Room Air 12/06/22 07:10 12/06/22 06:24 Room Air Laboratory Results Short CBC 12/06/22 Range/Units 05:44 WBC 8.45 (4.8-10.8) K/ul Hgb 10.4 L (12.0-16.0) g/dl Hct 31.3 L (37.0-47.0) % Plt Count 264 (130-400) K/uL BMP 12/06/22 05:44 Sodium 136 Potassium 4.2 Chloride 102 Carbon Dioxide 29 BUN 26 H Creatinine 0.96 Glucose 87 Calcium 8.8 Medications Administered Current Inpatient Medications Acetaminophen (Acetaminophen 325 Mg Tab) 650 mg PO Q4H PRN PRN Reason: Pain or Fever Stop: 01/04/23 01:30 Last Admin: 12/05/22 21:09 Dose: 650 mg Aspirin (Aspirin 81 Mg Ectab) 81 mg PO DAILY MIKE Stop: 01/04/23 08:59 Last Admin: 12/06/22 08:37 Dose: 81 mg Carvedilol (Carvedilol 12.5 Mg Tab) 12.5 mg PO BID MIKE Stop: 01/04/23 01:30 Last Admin: 12/06/22 08:38 Dose: 12.5 mg Citalopram Hydrobromide (Citalopram 20 Mg Tab) 20 mg PO DAILY MIKE Stop: 01/04/23 08:59 Last Admin: 12/06/22 08:38 Dose: 20 mg Cyanocobalamin (Cyanocobalamin (B-12) 500 Mcg Tablet) 1,000 mcg PO DAILY MIKE Stop: 01/04/23 08:59 Last Admin: 12/06/22 08:38 Dose: 1,000 mcg Dextrose (Dextrose 50% 50 Ml Syringe) 25 - 50 ml IV UD PRN; Protocol PRN Reason: Hypoglycemia Protocol Stop: 01/04/23 01:30 Digoxin (Digoxin 0.125 Mg Tab) 0.125 mg PO DAILY@1600 MIKE Stop: 01/04/23 15:59 Last Admin: 12/06/22 17:04 Dose: 0.125 mg Doxycycline Hyclate (Doxycycline Hyclate 100 Mg Cap) 100 mg PO BID MIKE Stop: 12/12/22 08:59 Last Admin: 12/06/22 08:37 Dose: 100 mg Gabapentin (Gabapentin 100 Mg Cap) 100 mg PO HS MIKE Stop: 01/04/23 20:59 Last Admin: 12/05/22 08:31 Dose: 100 mg Glucagon (Glucagon For Inj 1 Mg Vial) 1 mg SQ UD PRN; Protocol PRN Reason: Hypoglycemia Protocol Stop: 01/04/23 01:30 Glucose (Glucose 40% Gel 15 Gm Tube) 15 - 30 gm PO UD PRN; Protocol PRN Reason: Hypoglycemia Protocol Stop: 01/04/23 01:30 Glucose (Glucose 10 Tab/Tube) 4 - 8 tab PO UD PRN; Protocol PRN Reason: Hypoglycemia Treatment Stop: 01/04/23 01:30 Promethazine HCl 12.5 mg/ (Sodium Chloride) 50.5 mls @ 202 mls/hr IV Q6H PRN PRN Reason: Nausea And Vomiting Stop: 01/04/23 01:30 Cefepime HCl 2,000 mg/ Syringe 20 mls @ 5 mls/min IV Q12H MIKE; Protocol Stop: 12/12/22 20:59 Insulin Aspart (Insulin Aspart Per Unit) 0 units SC ACHS [facility] Stop: 01/04/23 01:30 Last Admin: 12/06/22 16:57 Dose: Not Given Losartan Potassium (Losartan Potassium 50 Mg Tab) 50 mg PO DAILY [facility] Stop: 01/04/23 08:59 Last Admin: 12/06/22 08:37 Dose: 50 mg Miscellaneous (Carbohydrates For Hypoglycemia ) 15 - 30 gm PO UD PRN PRN Reason: Hypoglycemia Protocol Stop: 01/04/23 01:30 Senna/Docusate Sodium (Docusate Sodium/Senna 50/8.6mg Tab) 1 tab PO BID [facility] Stop: 01/04/23 05:14 Last Admin: 12/06/22 08:38 Dose: 1 tab Tramadol HCl (Tramadol Hcl 50 Mg Tablet) 25 - 50 mg PO Q4H PRN PRN Reason: Pain Stop: 01/04/23 01:30 Last Admin: 12/05/22 21:09 Dose: 50 mg Warfarin Sodium (Warfarin Sod 6 Mg Tab) 6 mg PO DAILY@1600 [facility] Stop: 01/04/23 15:59 Last Admin: 12/06/22 17:04 Dose: 6 mg
[2022-12-06] MEDS: GABAPENTIN 100 MG CAP PO SCH (22:40)
[2022-12-06] MEDS ORDERED: diphenhydrAMINE Capsule 25 MG CAP PO ONE (23:59)
[2022-12-07] MEDS: ACETAMINOPHEN 325 MG TAB PO PRN ×2 (00:36→23:07)
[2022-12-07] MEDS: INSULIN ASPART PER UNIT SC SCH ×4 (09:26→21:58)
[2022-12-07] MEDS: CITALOPRAM 20 MG TAB PO SCH (09:29)
[2022-12-07] MEDS: CYANOCOBALAMIN (B-12) 500 MCG TABLET PO SCH (09:29)
[2022-12-07] MEDS: CEFEPIME 2,000 MG in SYRINGE 0 ML IV SCH ×2 (09:29→21:56)
[2022-12-07] MEDS: carvediloL 12.5 MG TAB PO SCH ×2 (09:29→21:57)
[2022-12-07] MEDS: DOXYCYCLINE HYCLATE 100 MG CAP PO SCH ×2 (09:29→21:58)
[2022-12-07] MEDS: DOCUSATE SODIUM/SENNA 50/8.6MG TAB PO SCH ×2 (09:29→21:57)
[2022-12-07] MEDS: LOSARTAN POTASSIUM 50 MG TAB PO SCH (09:30)
[2022-12-07] MEDS: ASPIRIN 81 MG ECTAB PO SCH (09:30)
[2022-12-07] MEDS: COLLAGENASE OINT 30 GM TUBE EXT SCH (09:32)
[2022-12-07 09:42] LABS: Basophils # (auto) 0.05 K/uL (0-0.2); Basophils % (auto) 0.6 %; Eosinophils # (auto) 0.35 K/uL (0-0.50); Eosinophils % (auto) 4.3 %; Hemoglobin 11.6 g/dl (12.0-16.0); Immature Granulocytes # (auto) 0.03 K/uL (0.01-0.20); Immature Granulocytes % (auto) 0.4 %; Lymphocytes # (auto) 1.76 K/uL (1.2-3.4); Lymphocytes % (auto) 21.8 %; Mean Corpuscular Hemoglobin 28.8 pg (25.0-34.0); Mean Corpuscular Hgb Conc 32.2 g/dL (32.0-36.0); Mean Corpuscular Volume 89.3 fL (80.0-100.0); Mean Platelet Volume 9.7 fL (9.4-12.4); Monocytes # (auto) 0.49 K/uL (0.11-0.59); Monocytes % (auto) 6.1 %; Neutrophils % (auto) 66.8 %; Platelet Count 255 K/uL (130-400); RDW Coefficient of Variation 14.8 % (11.5-14.5); RDW Standard Deviation 48.8 fL (36.4-46.3); Red Blood Count 4.03 M/uL (4.20-5.40); White Blood Count 8.08 K/ul (4.8-10.8)
[2022-12-07 09:53] LABS: BUN Creatinine Ratio 34.6 (10-20); Calcium 9.3 mg/dl (8.5-10.1); Creatinine Clr Calc Pharmacy 65.1 ml/min; Est GFR (African American) 83.2 ml/min; Est GFR (Non-African American) 71.8 ml/min; Potassium 4.1 mmol/L (3.5-5.1)
[2022-12-07 10:07] LABS: INR 1.9 (0.9-1.1); Prothrombin Time 19.1 Seconds (9.0-12.0)
[2022-12-07] MEDS: DIGOXIN 0.125 MG TAB PO SCH (16:57)
[2022-12-07] MEDS: WARFARIN SOD 6 MG TAB PO SCH (16:58)
[2022-12-07] MEDS: MELATONIN 3 MG TAB PO PRN (21:56)
[2022-12-07] MEDS: GABAPENTIN 100 MG CAP PO SCH (21:57)
[2022-12-08 09:15] LABS: Creatinine Clr Calc Pharmacy 67.2 ml/min; Est GFR (African American) 87.3 ml/min; Est GFR (Non-African American) 75.3 ml/min
[2022-12-08] MEDS: DOCUSATE SODIUM/SENNA 50/8.6MG TAB PO SCH ×2 (09:21→21:05)
[2022-12-08] MEDS: ASPIRIN 81 MG ECTAB PO SCH (09:21)
[2022-12-08] MEDS: carvediloL 12.5 MG TAB PO SCH ×2 (09:21→21:05)
[2022-12-08] MEDS: DOXYCYCLINE HYCLATE 100 MG CAP PO SCH ×2 (09:21→21:05)
[2022-12-08] MEDS: CYANOCOBALAMIN (B-12) 500 MCG TABLET PO SCH (09:21)
[2022-12-08] MEDS: CITALOPRAM 20 MG TAB PO SCH (09:21)
[2022-12-08] MEDS: LOSARTAN POTASSIUM 50 MG TAB PO SCH (09:21)
[2022-12-08] MEDS: COLLAGENASE OINT 30 GM TUBE EXT SCH (09:22)
[2022-12-08] MEDS: CEFEPIME 2,000 MG in SYRINGE 0 ML IV SCH ×2 (09:22→17:26)
[2022-12-08 09:32] LABS: INR 1.8 (0.9-1.1); Prothrombin Time 18.2 Seconds (9.0-12.0)
[2022-12-08] MEDS: INSULIN ASPART PER UNIT SC SCH ×4 (10:01→20:53)
--- NOTE | 2022-12-08 14:29 | Hospitalist Progress Note ---
Date of Service December 07, 2022 This is a bill for 12/07/2022 Assessment & Plan (1) Decubitus ulcer of sacral area: Plan: Decubitus ulcer of sacral area adjoining right buttock stage III-IV Surrounding cellulitis around this decubital ulcer-please see the picture for more information No evidence of osteomyelitis as per CT scan Will ask for surgical evaluation for possible debridement Follow blood cultures, wound culture, start on IV antibiotic- given cefepime IV in the ER, add doxycycline IV, check nasal MRSA swab WBC 11.89, afebrile Wound care nurse consult, frequent turn/repo for pressure offloading Tapia catheter due to needs for self catheterization twice daily. Pt reports this has been going on for multiple years. Continue current antibiotic Appreciate surgery input and recommendation-status post debridement done on 12/05/2022 Appreciate wound care input as well Denies any pain in the sacral area and has been maintaining postures to avoid any significant pressure over the sacral area (2) COVID-19 virus infection: Plan: Remains asymptomatic except diarrhea Noted to be hypoxic at 1.1 admission Denies any cough and no respiratory symptoms Saturating normally on room air Does not require any treatment for COVID-19 virus infection Will require to finish the quarantine in the hospital (3) Fecal retention: Plan: Has had liquid bowel movement She has been feeling much better and denies any abdominal distention or discomfort No nausea no vomiting Continue with bowel regimen (4) Atrial fibrillation: Plan: Chronic atrial fibrillation -INR noted to be 1.7, trend with a.m. labs, subtherapeutic -Outpatient Coumadin dosing is 6 mg daily except 3 mg on Wednesdays and Saturdays, she was instructed to take half tablet as her INR was over 3 earlier this week. She typically does home Coumadin checks on Wednesdays. -Concern for possible PE with subtherapeutic Coumadin dosing and bout of hypoxia experienced in the CT scanner, checking CT angio now - no current sats reviewed showing hypoxia. Pt is currently on 2 L with sats at 99%. Denies respiratory sx. -Check digoxin level-normal at 1.2 -Trend trop-normal, no need to trend -INR is 2.2 as of 12/06/2022 (5) HTN (hypertension): Plan: Remains on the lower side (6) HLD (hyperlipidemia): Plan: - Cont carvedilol, digoxin, losartan, triamterene/HCTZ for now (7) DM type 2 (diabetes mellitus, type 2): Plan: -Hold pioglitazone, metformin with receiving contrast CTs -ISS with Accu-Cheks ACHS -Check A1c with a.m. labs DVT PPx: - teds, scds, Coumadin CODE: Full code Dispo: From home, likely to remain in the hospital until her quarantine time is over Admission and Anticipated Discharge Date Admission Date: December 04, 2022 Subjective 12/06/2022 The patient was seen and examined in medical telemetry unit and in the COVID room She has had wound debridement from the sacral area today Denies any respiratory symptoms and no more diarrhea 12/07/2022 The patient was seen and examined in the medical telemetry unit and in the COVID room She complains to have some headache but denies any respiratory symptoms Review of Systems Review of Systems: All systems reviewed and are unremarkable except as noted below Physical Exam Physical Exam: Lying in bed comfortably Constitutional: well developed, well nourished, + ill appearing and average body habitus Eyes: PERRL, conjunctivae normal, anicteric sclerae ENMT: external ear and nose normal, oropharynx normal Respiratory: no respiratory distress Auscultation: + diminished lung sounds and + crackles (Minimal crackles at the bases) Cardiovascular: Rate/Rhythm: regular rate and regular rhythm; not tachycardic Heart Sounds: normal S1 and normal S2; no murmur Extremities: no edema Gastrointestinal (Abdomen): Inspection/Auscultation: normal bowel sounds; abdomen not distended Percussion/Palpation: abdomen soft; abdomen nontender Musculoskeletal: No acute arthritis involving any joint Neurologic: Alert, awake and oriented x3 Results & Data Results & Data ([facility]) Vital Signs (Past 12 Hours) Vital Signs Temp Pulse Pulse Resp BP Pulse Ox Pulse Ox 12/08/22 11:42 36.4 C L 74 20 137/72 96 12/08/22 10:00 98 12/08/22 08:06 36.6 C 63 20 135/69 97 12/08/22 07:19 59 L 12/08/22 02:57 36.6 C 69 18 127/72 97 O2 Del Method O2 Del Method 12/08/22 11:42 Room Air 12/08/22 10:00 Room Air 12/08/22 08:06 Room Air 12/08/22 07:19 12/08/22 02:57 Room Air
--- NOTE | 2022-12-08 14:31 | Hospitalist Progress Note ---
Date of Service December 08, 2022 Assessment & Plan (1) Decubitus ulcer of sacral area: Plan: Decubitus ulcer of sacral area adjoining right buttock stage III-IV Surrounding cellulitis around this decubital ulcer-please see the picture for more information No evidence of osteomyelitis as per CT scan Will ask for surgical evaluation for possible debridement Follow blood cultures, wound culture, start on IV antibiotic- given cefepime IV in the ER, add doxycycline IV, check nasal MRSA swab WBC 11.89, afebrile Wound care nurse consult, frequent turn/repo for pressure offloading Tapia catheter due to needs for self catheterization twice daily. Pt reports this has been going on for multiple years. Continue current antibiotic Appreciate surgery input and recommendation-status post debridement done on 12/05/2022 Appreciate wound care input as well Denies any pain in the sacral area and has been maintaining postures to avoid any significant pressure over the sacral area The wound is healing nicely Wound culture is growing Pseudomonas aeruginosa and group C beta strep Has been getting intravenous cefepime and will continue as long as she remains in the hospital EKG did not show any QT prolongation Plan to start Cipro/Levaquin and ampicillin to finish the course at discharge (2) COVID-19 virus infection: Plan: Remains asymptomatic except diarrhea Noted to be hypoxic at 1.1 admission Denies any cough and no respiratory symptoms Saturating normally on room air Does not require any treatment for COVID-19 virus infection Will require to finish the quarantine in the hospital (3) Fecal retention: Plan: Has had liquid bowel movement She has been feeling much better and denies any abdominal distention or discomfort No nausea no vomiting Continue with bowel regimen (4) Atrial fibrillation: Plan: Chronic atrial fibrillation -INR noted to be 1.7, trend with a.m. labs, subtherapeutic -Outpatient Coumadin dosing is 6 mg daily except 3 mg on Wednesdays and Saturdays, she was instructed to take half tablet as her INR was over 3 earlier this week. She typically does home Coumadin checks on Wednesdays. -Concern for possible PE with subtherapeutic Coumadin dosing and bout of hypoxia experienced in the CT scanner, checking CT angio now - no current sats reviewed showing hypoxia. Pt is currently on 2 L with sats at 99%. Denies respiratory sx. -Check digoxin level-normal at 1.2 -Trend trop-normal, no need to trend -INR is 2.2 as of 12/06/2022 (5) HTN (hypertension): Plan: Remains on the lower side (6) HLD (hyperlipidemia): Plan: - Cont carvedilol, digoxin, losartan, triamterene/HCTZ for now (7) DM type 2 (diabetes mellitus, type 2): Plan: -Hold pioglitazone, metformin with receiving contrast CTs -ISS with Accu-Cheks ACHS -Check A1c with a.m. labs DVT PPx: - teds, scds, Coumadin CODE: Full code Dispo: From home, likely to remain in the hospital until her quarantine time is over Admission and Anticipated Discharge Date Admission Date: December 04, 2022 Subjective 12/06/2022 The patient was seen and examined in medical telemetry unit and in the COVID room She has had wound debridement from the sacral area today Denies any respiratory symptoms and no more diarrhea 12/07/2022 The patient was seen and examined in the medical telemetry unit and in the COVID room She complains to have some headache but denies any respiratory symptoms 12/08/2022 The patient was seen and examined in medical telemetry unit and in the COVID room She has been feeling much better Her headache is generally controlled with Tylenol Denies any fever and or chills Review of Systems Review of Systems: All systems reviewed and are unremarkable except as noted below Physical Exam Physical Exam: Lying in bed comfortably Constitutional: well developed, well nourished, + ill appearing and average body habitus Eyes: PERRL, conjunctivae normal, anicteric sclerae ENMT: external ear and nose normal, oropharynx normal Neck: trachea midline, no thyromegaly Respiratory: no respiratory distress Auscultation: + diminished lung sounds and + crackles (Minimal crackles at the bases) Cardiovascular: Rate/Rhythm: regular rate and regular rhythm; not tachycardic Heart Sounds: normal S1 and normal S2; no murmur Extremities: no edema Gastrointestinal (Abdomen): Inspection/Auscultation: normal bowel sounds; abdomen not distended Percussion/Palpation: abdomen soft; abdomen nontender Musculoskeletal: No acute arthritis involving any joint Neurologic: normal touch/pain/proprioception and moves all extremities; no focal motor deficits Psychiatric: A+Ox3, euthymic affect Lymphatic: no cervical or axillary lymphadenopathy Results & Data Results & Data ([facility]) Vital Signs (Past 12 Hours) Vital Signs Temp Pulse Pulse Resp BP Pulse Ox Pulse Ox 12/08/22 11:42 36.4 C L 74 20 137/72 96 12/08/22 10:00 98 12/08/22 08:06 36.6 C 63 20 135/69 97 12/08/22 07:19 59 L 12/08/22 02:57 36.6 C 69 18 127/72 97 O2 Del Method O2 Del Method 12/08/22 11:42 Room Air 12/08/22 10:00 Room Air 12/08/22 08:06 Room Air 12/08/22 07:19 12/08/22 02:57 Room Air Laboratory Results BMP 12/08/22 08:22 Creatinine 0.75 Medications Administered Current Inpatient Medications Acetaminophen (Acetaminophen 325 Mg Tab) 650 mg PO Q4H PRN PRN Reason: Pain or Fever Stop: 01/04/23 01:30 Last Admin: 12/07/22 23:07 Dose: 650 mg Aspirin (Aspirin 81 Mg Ectab) 81 mg PO DAILY MIKE Stop: 01/04/23 08:59 Last Admin: 12/08/22 09:21 Dose: 81 mg Carvedilol (Carvedilol 12.5 Mg Tab) 12.5 mg PO BID MIKE Stop: 01/04/23 01:30 Last Admin: 12/08/22 09:21 Dose: 12.5 mg Citalopram Hydrobromide (Citalopram 20 Mg Tab) 20 mg PO DAILY MIKE Stop: 01/04/23 08:59 Last Admin: 12/08/22 09:21 Dose: 20 mg Collagenase (Collagenase Oint 30 Gm Tube) 1 appln EXT DAILY MIKE Stop: 01/06/23 08:59 Last Admin: 12/08/22 09:22 Dose: 1 appln Cyanocobalamin (Cyanocobalamin (B-12) 500 Mcg Tablet) 1,000 mcg PO DAILY MIKE Stop: 01/04/23 08:59 Last Admin: 12/08/22 09:21 Dose: 1,000 mcg Dextrose (Dextrose 50% 50 Ml Syringe) 25 - 50 ml IV UD PRN; Protocol PRN Reason: Hypoglycemia Protocol Stop: 01/04/23 01:30 Digoxin (Digoxin 0.125 Mg Tab) 0.125 mg PO DAILY@1600 [facility] Stop: 01/04/23 15:59 Last Admin: 12/07/22 16:57 Dose: 0.125 mg Doxycycline Hyclate (Doxycycline Hyclate 100 Mg Cap) 100 mg PO BID [facility] Stop: 12/12/22 08:59 Last Admin: 12/08/22 09:21 Dose: 100 mg Gabapentin (Gabapentin 100 Mg Cap) 100 mg PO HS [facility] Stop: 01/04/23 20:59 Last Admin: 12/07/22 21:57 Dose: 100 mg Glucagon (Glucagon For Inj 1 Mg Vial) 1 mg SQ UD PRN; Protocol PRN Reason: Hypoglycemia Protocol Stop: 01/04/23 01:30 Glucose (Glucose 40% Gel 15 Gm Tube) 15 - 30 gm PO UD PRN; Protocol PRN Reason: Hypoglycemia Protocol Stop: 01/04/23 01:30 Glucose (Glucose 10 Tab/Tube) 4 - 8 tab PO UD PRN; Protocol PRN Reason: Hypoglycemia Treatment Stop: 01/04/23 01:30 Promethazine HCl 12.5 mg/ (Sodium Chloride) 50.5 mls @ 202 mls/hr IV Q6H PRN PRN Reason: Nausea And Vomiting Stop: 01/04/23 01:30 Cefepime HCl 2,000 mg/ Syringe 20 mls @ 5 mls/min IV Q8H [facility]; Protocol Stop: 12/10/22 23:59 Insulin Aspart (Insulin Aspart Per Unit) 0 units SC ACHS [facility] Stop: 01/04/23 01:30 Last Admin: 12/08/22 12:39 Dose: 3 units Losartan Potassium (Losartan Potassium 50 Mg Tab) 50 mg PO DAILY MIKE Stop: 01/04/23 08:59 Last Admin: 12/08/22 09:21 Dose: 50 mg Melatonin (Melatonin 3 Mg Tab) 3 mg PO HS PRN PRN Reason: Sleep Stop: 01/06/23 13:47 Last Admin: 12/07/22 21:56 Dose: 3 mg Miscellaneous (Carbohydrates For Hypoglycemia ) 15 - 30 gm PO UD PRN PRN Reason: Hypoglycemia Protocol Stop: 01/04/23 01:30 Senna/Docusate Sodium (Docusate Sodium/Senna 50/8.6mg Tab) 1 tab PO BID [facility] Stop: 01/04/23 05:14 Last Admin: 12/08/22 09:21 Dose: 1 tab Tramadol HCl (Tramadol Hcl 50 Mg Tablet) 25 - 50 mg PO Q4H PRN PRN Reason: Pain Stop: 01/04/23 01:30 Last Admin: 12/05/22 21:09 Dose: 50 mg Warfarin Sodium (Warfarin Sod 6 Mg Tab) 6 mg PO DAILY@1600 [facility]KE Stop: 01/04/23 15:59 Last Admin: 12/07/22 16:58 Dose: 6 mg
[2022-12-08] MEDS: WARFARIN SOD 6 MG TAB PO SCH (17:19)
[2022-12-08] MEDS: DIGOXIN 0.125 MG TAB PO SCH (17:19)
[2022-12-08] MEDS: GABAPENTIN 100 MG CAP PO SCH (21:05)
--- NOTE | 2022-12-08 23:04 | Electrocardiogram Report ---
Test Reason : Blood Pressure : / mmHG Vent. Rate : 080 BPM Atrial Rate : 110 BPM P-R Int : 000 ms QRS Dur : 082 ms QT Int : 372 ms P-R-T Axes : 000 127 -70 degrees QTc Int : 429 ms Atrial fibrillation Right axis deviation T wave abnormality, consider inferior ischemia Abnormal ECG When compared with ECG of 02-SEP-2015 18:36, QRS axis Shifted right Confirmed by Farhan Canchola ([id number] on 12/08/2022 11:03:52 PM Referred By: REFERRED SELF Confirmed By:Robert Canchola
[2022-12-09] MEDS: MELATONIN 3 MG TAB PO PRN ×2 (00:07→22:54)
[2022-12-09] MEDS: ACETAMINOPHEN 325 MG TAB PO PRN ×2 (00:07→22:55)
[2022-12-09] MEDS: CEFEPIME 2,000 MG in SYRINGE 0 ML IV SCH ×3 (00:12→17:54)
[2022-12-09 07:10] LABS: INR 1.8 (0.9-1.1); Prothrombin Time 18.1 Seconds (9.0-12.0)
[2022-12-09] MEDS: INSULIN ASPART PER UNIT SC SCH ×4 (09:47→22:57)
[2022-12-09] MEDS: carvediloL 12.5 MG TAB PO SCH ×2 (09:58→22:53)
[2022-12-09] MEDS: CITALOPRAM 20 MG TAB PO SCH (09:58)
[2022-12-09] MEDS: LOSARTAN POTASSIUM 50 MG TAB PO SCH (09:58)
[2022-12-09] MEDS: COLLAGENASE OINT 30 GM TUBE EXT SCH (09:58)
[2022-12-09] MEDS: DOXYCYCLINE HYCLATE 100 MG CAP PO SCH ×2 (09:58→22:56)
[2022-12-09] MEDS: ASPIRIN 81 MG ECTAB PO SCH (09:58)
[2022-12-09] MEDS: CYANOCOBALAMIN (B-12) 500 MCG TABLET PO SCH (09:58)
[2022-12-09] MEDS: DOCUSATE SODIUM/SENNA 50/8.6MG TAB PO SCH ×2 (09:58→22:56)
--- NOTE | 2022-12-09 13:44 | Hospitalist Progress Note ---
Date of Service December 09, 2022 Assessment & Plan (1) Decubitus ulcer of sacral area: Plan: Decubitus ulcer of sacral area adjoining right buttock stage III-IV Surrounding cellulitis around this decubital ulcer-please see the picture for more information No evidence of osteomyelitis as per CT scan Will ask for surgical evaluation for possible debridement Follow blood cultures, wound culture, start on IV antibiotic- given cefepime IV in the ER, add doxycycline IV, check nasal MRSA swab WBC 11.89, afebrile Wound care nurse consult, frequent turn/repo for pressure offloading Tapia catheter due to needs for self catheterization twice daily. Pt reports this has been going on for multiple years. Continue current antibiotic Appreciate surgery input and recommendation-status post debridement done on 12/05/2022 Appreciate wound care input as well Denies any pain in the sacral area and has been maintaining postures to avoid any significant pressure over the sacral area The wound is healing nicely-please look at the picture of the wound to have a clear understanding about the wound No superimposed infection but the wound itself is very deep and she will take long time to have any healing Wound culture is growing Pseudomonas aeruginosa and group C beta strep Has been getting intravenous cefepime and will continue as long as she remains in the hospital EKG did not show any QT prolongation Plan to start Cipro/Levaquin and ampicillin to finish the course at discharge We will continue antibiotic for a total of 10 days Complaining of headache since fall No other acute associated symptoms Will have CT scan without contrast (2) COVID-19 virus infection: Plan: Remains asymptomatic except diarrhea Noted to be hypoxic at 1.1 admission Denies any cough and no respiratory symptoms Saturating normally on room air Does not require any treatment for COVID-19 virus infection Will require to finish the quarantine in the hospital (3) Fecal retention: Plan: Has had liquid bowel movement She has been feeling much better and denies any abdominal distention or discomfort No nausea no vomiting Continue with bowel regimen (4) Atrial fibrillation: Plan: Chronic atrial fibrillation -INR noted to be 1.7, trend with a.m. labs, subtherapeutic -Outpatient Coumadin dosing is 6 mg daily except 3 mg on Wednesdays and Saturdays, she was instructed to take half tablet as her INR was over 3 earlier this week. She typically does home Coumadin checks on Wednesdays. -Concern for possible PE with subtherapeutic Coumadin dosing and bout of hypoxia experienced in the CT scanner, checking CT angio now - no current sats reviewed showing hypoxia. Pt is currently on 2 L with sats at 99%. Denies respiratory sx. -Check digoxin level-normal at 1.2 -Trend trop-normal, no need to trend -INR is 2.2 as of 12/06/2022 (5) HTN (hypertension): Plan: Remains on the lower side (6) HLD (hyperlipidemia): Plan: - Cont carvedilol, digoxin, losartan, triamterene/HCTZ for now (7) DM type 2 (diabetes mellitus, type 2): Plan: -Hold pioglitazone, metformin with receiving contrast CTs -ISS with Accu-Cheks ACHS -Check A1c with a.m. labs DVT PPx: - teds, scds, Coumadin CODE: Full code Dispo: From home, likely to remain in the hospital until her quarantine time is over Admission and Anticipated Discharge Date Admission Date: December 04, 2022 Subjective 12/06/2022 The patient was seen and examined in medical telemetry unit and in the COVID room She has had wound debridement from the sacral area today Denies any respiratory symptoms and no more diarrhea 12/07/2022 The patient was seen and examined in the medical telemetry unit and in the COVID room She complains to have some headache but denies any respiratory symptoms 12/08/2022 The patient was seen and examined in medical telemetry unit and in the COVID room She has been feeling much better Her headache is generally controlled with Tylenol Denies any fever and or chills 12/09/2022 The patient was seen and examined in medical telemetry unit and in the COVID room Complains to have ongoing headache following the fall at home No associated symptoms of blurred vision, numbness or tingling in the extremities, any nausea and or vomiting Denies any other symptoms Review of Systems Review of Systems: All systems reviewed and are unremarkable except as noted below Physical Exam Physical Exam: Lying in bed comfortably Constitutional: well developed, well nourished, + ill appearing and average body habitus Eyes: PERRL, conjunctivae normal, anicteric sclerae ENMT: external ear and nose normal, oropharynx normal Neck: trachea midline, no thyromegaly Respiratory: no respiratory distress Auscultation: + diminished lung sounds and + crackles (Minimal crackles at the bases) Cardiovascular: Rate/Rhythm: regular rate and regular rhythm; not tachycardic Heart Sounds: normal S1 and normal S2; no murmur Extremities: no edema Gastrointestinal (Abdomen): Inspection/Auscultation: normal bowel sounds; abdomen not distended Percussion/Palpation: abdomen soft; abdomen nontender Musculoskeletal: No acute arthritis involving any joint Neurologic: normal touch/pain/proprioception and moves all extremities; no focal motor deficits Speech / Cognition: normal speech Psychiatric: A+Ox3, euthymic affect Lymphatic: no cervical or axillary lymphadenopathy Results & Data Results & Data ([facility]) Vital Signs (Past 12 Hours) Vital Signs Temp Pulse Pulse Resp BP Pulse Ox O2 Del Method 12/09/22 11:09 36.7 C 61 18 109/64 98 Room Air 12/09/22 07:43 37.0 C 76 18 150/82 H 97 Room Air 12/09/22 07:41 56 L 12/09/22 04:00 36.6 C 65 18 145/66 H 99 Room Air Medications Administered Current Inpatient Medications Acetaminophen (Acetaminophen 325 Mg Tab) 650 mg PO Q4H PRN PRN Reason: Pain or Fever Stop: 01/04/23 01:30 Last Admin: 12/09/22 00:07 Dose: 650 mg Aspirin (Aspirin 81 Mg Ectab) 81 mg PO DAILY [facility] Stop: 01/04/23 08:59 Last Admin: 12/09/22 09:58 Dose: 81 mg Carvedilol (Carvedilol 12.5 Mg Tab) 12.5 mg PO BID [facility] Stop: 01/04/23 01:30 Last Admin: 12/09/22 09:58 Dose: 12.5 mg Citalopram Hydrobromide (Citalopram 20 Mg Tab) 20 mg PO DAILY [facility] Stop: 01/04/23 08:59 Last Admin: 12/09/22 09:58 Dose: 20 mg Collagenase (Collagenase Oint 30 Gm Tube) 1 appln EXT DAILY [facility] Stop: 01/06/23 08:59 Last Admin: 12/09/22 09:58 Dose: 1 appln Cyanocobalamin (Cyanocobalamin (B-12) 500 Mcg Tablet) 1,000 mcg PO DAILY [facility] Stop: 01/04/23 08:59 Last Admin: 02/18/23 09:58 Dose: 1,000 mcg Dextrose (Dextrose 50% 50 Ml Syringe) 25 - 50 ml IV UD PRN; Protocol PRN Reason: Hypoglycemia Protocol Stop: 01/04/23 01:30 Digoxin (Digoxin 0.125 Mg Tab) 0.125 mg PO DAILY@1600 [facility] Stop: 01/04/23 15:59 Last Admin: 12/08/22 17:19 Dose: 0.125 mg Doxycycline Hyclate (Doxycycline Hyclate 100 Mg Cap) 100 mg PO BID [facility] Stop: 12/12/22 08:59 Last Admin: 12/09/22 09:58 Dose: 100 mg Gabapentin (Gabapentin 100 Mg Cap) 100 mg PO HS [facility] Stop: 01/04/23 20:59 Last Admin: 12/08/22 21:05 Dose: 100 mg Glucagon (Glucagon For Inj 1 Mg Vial) 1 mg SQ UD PRN; Protocol PRN Reason: Hypoglycemia Protocol Stop: 01/04/23 01:30 Glucose (Glucose 40% Gel 15 Gm Tube) 15 - 30 gm PO UD PRN; Protocol PRN Reason: Hypoglycemia Protocol Stop: 01/04/23 01:30 Glucose (Glucose 10 Tab/Tube) 4 - 8 tab PO UD PRN; Protocol PRN Reason: Hypoglycemia Treatment Stop: 01/04/23 01:30 Promethazine HCl 12.5 mg/ (Sodium Chloride) 50.5 mls @ 202 mls/hr IV Q6H PRN PRN Reason: Nausea And Vomiting Stop: 01/04/23 01:30 Cefepime HCl 2,000 mg/ Syringe 20 mls @ 5 mls/min IV Q8H [facility]; Protocol Stop: 12/10/22 23:59 Last Admin: 12/09/22 09:58 Dose: 5 mls/min Insulin Aspart (Insulin Aspart Per Unit) 0 units SC ACHS [facility] Stop: 01/04/23 01:30 Last Admin: 12/09/22 12:43 Dose: 3 units Losartan Potassium (Losartan Potassium 50 Mg Tab) 50 mg PO DAILY [facility] Stop: 01/04/23 08:59 Last Admin: 12/09/22 09:58 Dose: 50 mg Melatonin (Melatonin 3 Mg Tab) 3 mg PO HS PRN PRN Reason: Sleep Stop: 01/06/23 13:47 Last Admin: 12/09/22 00:07 Dose: 3 mg Miscellaneous (Carbohydrates For Hypoglycemia ) 15 - 30 gm PO UD PRN PRN Reason: Hypoglycemia Protocol Stop: 01/04/23 01:30 Senna/Docusate Sodium (Docusate Sodium/Senna 50/8.6mg Tab) 1 tab PO BID [facility] Stop: 01/04/23 05:14 Last Admin: 12/09/22 09:58 Dose: 1 tab Tramadol HCl (Tramadol Hcl 50 Mg Tablet) 25 - 50 mg PO Q4H PRN PRN Reason: Pain Stop: 01/04/23 01:30 Last Admin: 12/05/22 21:09 Dose: 50 mg Warfarin Sodium (Warfarin Sod 6 Mg Tab) 6 mg PO DAILY@1600 [facility] Stop: 01/04/23 15:59 Last Admin: 12/08/22 17:19 Dose: 6 mg
[2022-12-09] MEDS: DIGOXIN 0.125 MG TAB PO SCH (17:06)
[2022-12-09] MEDS: WARFARIN SOD 6 MG TAB PO SCH (17:06)
--- NOTE | 2022-12-09 22:31 | CT Scan Report ---
CT head/brain wo con CLINICAL HISTORY: 82 years-old Female with Headache following a fall. Acute headache status post fal l TECHNIQUE: Multiple axial CT images of the head were obtained without contrast. A dose lowering tech nique was utilized adhering to the principles of ALARA. CT DOSE: 537.48 mGy.cm COMPARISON: None. FINDINGS: No acute intracranial hemorrhage, midline shift, intracranial mass, hydrocephalus, territorial ischem ia or abnormal extra-axial collection. Involutional changes with chronic microvascular ischemic disea se. The calvarium is intact. Hyperostosis frontalis interna. The paranasal sinuses, mastoid air cells, an d middle ear cavities are clear. IMPRESSION: No acute intracranial abnormality or calvarial fracture. ACT 112: Negative or not required by law. The above report was generated using voice recognition software. It may contain grammatical, syntax o r spelling errors. Electronically signed by: Reece Akers M.D. 12/09/2022 10:30 PM
[2022-12-09] MEDS: GABAPENTIN 100 MG CAP PO SCH (22:56)
[2022-12-10] MEDS: CEFEPIME 2,000 MG in SYRINGE 0 ML IV SCH ×3 (01:14→16:41)
[2022-12-10 07:16] LABS: Calcium 9.5 mg/dl (8.5-10.1); Creatinine Clr Calc Pharmacy 71.1 ml/min; Est GFR (African American) 91.7 ml/min; Est GFR (Non-African American) 79.1 ml/min
[2022-12-10 07:48] LABS: INR 1.8 (0.9-1.1); Prothrombin Time 18.4 Seconds (9.0-12.0)
[2022-12-10] MEDS: INSULIN ASPART PER UNIT SC SCH ×4 (09:21→21:45)
[2022-12-10] MEDS: DOCUSATE SODIUM/SENNA 50/8.6MG TAB PO SCH ×2 (09:31→21:44)
[2022-12-10] MEDS: DOXYCYCLINE HYCLATE 100 MG CAP PO SCH ×2 (09:31→21:44)
[2022-12-10] MEDS: carvediloL 12.5 MG TAB PO SCH ×2 (09:31→21:43)
[2022-12-10] MEDS: LOSARTAN POTASSIUM 50 MG TAB PO SCH (09:31)
[2022-12-10] MEDS: ASPIRIN 81 MG ECTAB PO SCH (09:31)
[2022-12-10] MEDS: CYANOCOBALAMIN (B-12) 500 MCG TABLET PO SCH (09:31)
[2022-12-10] MEDS: CITALOPRAM 20 MG TAB PO SCH (09:31)
[2022-12-10] MEDS: COLLAGENASE OINT 30 GM TUBE EXT SCH (09:32)
[2022-12-10] MEDS: DICLOFENAC SOD 1% GEL 100 GM TUBE EXT SCH ×2 (14:22→21:43)
--- NOTE | 2022-12-10 14:25 | Hospitalist Progress Note ---
Date of Service December 10, 2022 Assessment & Plan (1) Decubitus ulcer of sacral area: Plan: Decubitus ulcer of sacral area adjoining right buttock stage III-IV Surrounding cellulitis around this decubital ulcer-please see the picture for more information No evidence of osteomyelitis as per CT scan Will ask for surgical evaluation for possible debridement Follow blood cultures, wound culture, start on IV antibiotic- given cefepime IV in the ER, add doxycycline IV, check nasal MRSA swab WBC 11.89, afebrile Wound care nurse consult, frequent turn/repo for pressure offloading Tapia catheter due to needs for self catheterization twice daily. Pt reports this has been going on for multiple years. Continue current antibiotic Appreciate surgery input and recommendation-status post debridement done on 12/05/2022 Appreciate wound care input as well Denies any pain in the sacral area and has been maintaining postures to avoid any significant pressure over the sacral area The wound is healing nicely-please look at the picture of the wound to have a clear understanding about the wound No superimposed infection but the wound itself is very deep and she will take long time to have any healing No pain in the wound and no other signs of infection Wound culture is growing Pseudomonas aeruginosa and group C beta strep Has been getting intravenous cefepime and will continue as long as she remains in the hospital EKG did not show any QT prolongation Plan to start Cipro/Levaquin and ampicillin to finish the course at discharge We will continue antibiotic for a total of 10 days Complaining of headache since fall No other acute associated symptoms Will have CT scan without contrast CT scan of the head has been negative for any significant findings History of neck surgery and the patient things the pain coming from the neck Will apply Voltaren gel locally (2) COVID-19 virus infection: Plan: Remains asymptomatic except diarrhea Noted to be hypoxic at 1.1 admission Denies any cough and no respiratory symptoms Saturating normally on room air Does not require any treatment for COVID-19 virus infection Will require to finish the quarantine in the hospital Heart COVID was diagnosed on of this month She will need to be quadrant timed to heal of this month Remains free from any COVID symptoms (3) Fecal retention: Plan: Has had liquid bowel movement She has been feeling much better and denies any abdominal distention or discomfort No nausea no vomiting Continue with bowel regimen (4) Atrial fibrillation: Plan: Chronic atrial fibrillation -INR noted to be 1.7, trend with a.m. labs, subtherapeutic -Outpatient Coumadin dosing is 6 mg daily except 3 mg on Wednesdays and Saturdays, she was instructed to take half tablet as her INR was over 3 earlier this week. She typically does home Coumadin checks on Wednesdays. -Concern for possible PE with subtherapeutic Coumadin dosing and bout of hypoxia experienced in the CT scanner, checking CT angio now - no current sats reviewed showing hypoxia. Pt is currently on 2 L with sats at 99%. Denies respiratory sx. -Check digoxin level-normal at 1.2 -Trend trop-normal, no need to trend -INR is 2.2 as of 12/06/2022 (5) HTN (hypertension): Plan: Remains on the lower side (6) HLD (hyperlipidemia): Plan: - Cont carvedilol, digoxin, losartan, triamterene/HCTZ for now (7) DM type 2 (diabetes mellitus, type 2): Plan: -Hold pioglitazone, metformin with receiving contrast CTs -ISS with Accu-Cheks ACHS -Check A1c with a.m. labs DVT PPx: - teds, scds, Coumadin CODE: Full code Dispo: From home, likely to remain in the hospital until her quarantine time is over Admission and Anticipated Discharge Date Admission Date: December 04, 2022 Subjective 12/06/2022 The patient was seen and examined in medical telemetry unit and in the COVID room She has had wound debridement from the sacral area today Denies any respiratory symptoms and no more diarrhea 12/07/2022 The patient was seen and examined in the medical telemetry unit and in the COVID room She complains to have some headache but denies any respiratory symptoms 12/08/2022 The patient was seen and examined in medical telemetry unit and in the COVID room She has been feeling much better Her headache is generally controlled with Tylenol Denies any fever and or chills 12/09/2022 The patient was seen and examined in medical telemetry unit and in the COVID room Complains to have ongoing headache following the fall at home No associated symptoms of blurred vision, numbness or tingling in the e xtremities, any nausea and or vomiting Denies any other symptoms 12/10/2022 The patient was seen and examined in medical telemetry unit and in the COVAR room She has been complaining of neck ache and headache Denies any respiratory symptoms and does not have any diarrhea Review of Systems Review of Systems: All systems reviewed and are unremarkable except as noted below Physical Exam Physical Exam: Lying in bed comfortably Constitutional: well developed, well nourished, + ill appearing and average body habitus Eyes: PERRL, conjunctivae normal, anicteric sclerae ENMT: external ear and nose normal, oropharynx normal Neck: trachea midline, no thyromegaly Respiratory: no respiratory distress Auscultation: + diminished lung sounds and + crackles (Minimal crackles at the bases) Cardiovascular: Rate/Rhythm: regular rate and regular rhythm; not tachycardic Heart Sounds: normal S1 and normal S2; no murmur Extremities: no edema Gastrointestinal (Abdomen): Inspection/Auscultation: normal bowel sounds; abdomen not distended Percussion/Palpation: abdomen soft; abdomen nontender Musculoskeletal: No significant arthritis involving any of the joint Neurologic: normal touch/pain/proprioception and moves all extremities; no focal motor deficits Speech / Cognition: normal speech Psychiatric: A+Ox3, euthymic affect Lymphatic: no cervical or axillary lymphadenopathy Results & Data Results & Data ([facility]) Vital Signs (Past 12 Hours) Vital Signs Temp Pulse Pulse Resp BP Pulse Ox O2 Del Method 12/10/22 11:34 37.1 C 70 18 122/61 96 Room Air 12/10/22 07:45 63 12/10/22 07:28 36.6 C 61 18 134/72 96 Room Air Laboratory Results [facility] 12/10/22 06:18 Sodium 136 Potassium 4.0 Chloride 103 Carbon Dioxide 29 BUN 36 H Creatinine 0.72 Glucose 88 Calcium 9.5 Medications Administered Current Inpatient Medications Acetaminophen (Acetaminophen 325 Mg Tab) 650 mg PO Q4H PRN PRN Reason: Pain or Fever Stop: 01/04/23 01:30 Last Admin: 12/09/22 22:55 Dose: 650 mg Aspirin (Aspirin 81 Mg Ectab) 81 mg PO DAILY [facility] Stop: 01/04/23 08:59 Last Admin: 12/10/22 09:31 Dose: 81 mg Carvedilol (Carvedilol 12.5 Mg Tab) 12.5 mg PO BID [facility] Stop: 01/04/23 01:30 Last Admin: 12/10/22 09:31 Dose: 12.5 mg Citalopram Hydrobromide (Citalopram 20 Mg Tab) 20 mg PO DAILY [facility] Stop: 01/04/23 08:59 Last Admin: 12/10/22 09:31 Dose: 20 mg Collagenase (Collagenase Oint 30 Gm Tube) 1 appln EXT DAILY [facility] Stop: 01/06/23 08:59 Last Admin: 12/10/22 09:32 Dose: 1 appln Cyanocobalamin (Cyanocobalamin (B-12) 500 Mcg Tablet) 1,000 mcg PO DAILY [facility] Stop: 01/04/23 08:59 Last Admin: 12/10/22 09:31 Dose: 1,000 mcg Dextrose (Dextrose 50% 50 Ml Syringe) 25 - 50 ml IV UD PRN; Protocol PRN Reason: Hypoglycemia Protocol Stop: 01/04/23 01:30 Diclofenac Sodium (Diclofenac Sod 1% Gel 100 Gm Tube) 2 gm EXT TID [facility]; Protocol Stop: 01/09/23 13:59 Digoxin (Digoxin 0.125 Mg Tab) 0.125 mg PO DAILY@1600 [facility] Stop: 01/04/23 15:59 Last Admin: 12/09/22 17:06 Dose: 0.125 mg Doxycycline Hyclate (Doxycycline Hyclate 100 Mg Cap) 100 mg PO BID [facility] Stop: 12/12/22 08:59 Last Admin: 12/10/22 09:31 Dose: 100 mg Gabapentin (Gabapentin 100 Mg Cap) 100 mg PO HS [facility] Stop: 01/04/23 20:59 Last Admin: 12/09/22 22:56 Dose: 100 mg Glucagon (Glucagon For Inj 1 Mg Vial) 1 mg SQ UD PRN; Protocol PRN Reason: Hypoglycemia Protocol Stop: 01/04/23 01:30 Glucose (Glucose 40% Gel 15 Gm Tube) 15 - 30 gm PO UD PRN; Protocol PRN Reason: Hypoglycemia Protocol Stop: 01/04/23 01:30 Glucose (Glucose 10 Tab/Tube) 4 - 8 tab PO UD PRN; Protocol PRN Reason: Hypoglycemia Treatment Stop: 01/04/23 01:30 Promethazine HCl 12.5 mg/ (Sodium Chloride) 50.5 mls @ 202 mls/hr IV Q6H PRN PRN Reason: Nausea And Vomiting Stop: 01/04/23 01:30 Cefepime HCl 2,000 mg/ Syringe 20 mls @ 5 mls/min IV Q8H [facility]; Protocol Stop: 12/10/22 23:59 Last Admin: 12/10/22 09:32 Dose: 5 mls/min Insulin Aspart (Insulin Aspart Per Unit) 0 units SC ACHS [facility] Stop: 01/04/23 01:30 Last Admin: 12/10/22 13:04 Dose: 2 units Losartan Potassium (Losartan Potassium 50 Mg Tab) 50 mg PO DAILY [facility] Stop: 01/04/23 08:59 Last Admin: 12/10/22 09:31 Dose: 50 mg Melatonin (Melatonin 3 Mg Tab) 3 mg PO HS PRN PRN Reason: Sleep Stop: 01/06/23 13:47 Last Admin: 12/09/22 22:54 Dose: 3 mg Miscellaneous (Carbohydrates For Hypoglycemia ) 15 - 30 gm PO UD PRN PRN Reason: Hypoglycemia Protocol Stop: 01/04/23 01:30 Senna/Docusate Sodium (Docusate Sodium/Senna 50/8.6mg Tab) 1 tab PO BID [facility] Stop: 01/04/23 05:14 Last Admin: 12/10/22 09:31 Dose: 1 tab Tramadol HCl (Tramadol Hcl 50 Mg Tablet) 25 - 50 mg PO Q4H PRN PRN Reason: Pain Stop: 01/04/23 01:30 Last Admin: 12/05/22 21:09 Dose: 50 mg Warfarin Sodium (Warfarin Sod 6 Mg Tab) 6 mg PO DAILY@1600 [facility] Stop: 01/04/23 15:59 Last Admin: 12/09/22 17:06 Dose: 6 mg
[2022-12-10] MEDS: DIGOXIN 0.125 MG TAB PO SCH (16:45)
[2022-12-10] MEDS: WARFARIN SOD 6 MG TAB PO SCH (16:47)
[2022-12-10] MEDS: GABAPENTIN 100 MG CAP PO SCH (21:44)
[2022-12-10] MEDS: MELATONIN 3 MG TAB PO PRN (21:46)
[2022-12-11] MEDS ORDERED: diphenhydrAMINE Capsule 25 MG CAP PO ONE (06:17)
[2022-12-11 07:41] LABS: Basophils # (auto) 0.06 K/uL (0-0.2); Basophils % (auto) 0.7 %; Eosinophils % (auto) 4.9 %; Hematocrit (blood only) 35.6 % (37.0-47.0); Hemoglobin 11.4 g/dl (12.0-16.0); Immature Granulocytes # (auto) 0.07 K/uL (0.01-0.20); Immature Granulocytes % (auto) 0.9 %; Lymphocytes # (auto) 2.05 K/uL (1.2-3.4); Mean Corpuscular Hemoglobin 28.5 pg (25.0-34.0); Mean Platelet Volume 9.4 fL (9.4-12.4); Monocytes # (auto) 0.66 K/uL (0.11-0.59); Neutrophils # (auto) 4.97 K/uL (1.40-6.50); Neutrophils % (auto) 60.5 %; Platelet Count 280 K/uL (130-400); RDW Coefficient of Variation 14.8 % (11.5-14.5); RDW Standard Deviation 48.4 fL (36.4-46.3); White Blood Count 8.21 K/ul (4.8-10.8)
[2022-12-11 07:57] LABS: Albumin Level 3.6 gm/dl (3.4-5.0); BUN Creatinine Ratio 40.2 (10-20); Bilirubin,Total 0.5 mg/dl (0.2-1.0); Calcium 9.4 mg/dl (8.5-10.1); Creatinine Clr Calc Pharmacy 62.7 ml/min; Est GFR (African American) 78.3 ml/min; Est GFR (Non-African American) 67.6 ml/min; Globulin 3.7 gm/dl (2.5-4.0); Magnesium 2.1 mg/dl (1.7-2.4); Potassium 4.3 mmol/L (3.5-5.1); Total Protein 7.3 gm/dl (6.0-8.3)
[2022-12-11] MEDS: INSULIN ASPART PER UNIT SC SCH ×4 (08:21→21:06)
[2022-12-11] MEDS: LOSARTAN POTASSIUM 50 MG TAB PO SCH (08:29)
[2022-12-11] MEDS: DICLOFENAC SOD 1% GEL 100 GM TUBE EXT SCH ×3 (08:30→21:16)
[2022-12-11] MEDS: DOCUSATE SODIUM/SENNA 50/8.6MG TAB PO SCH ×2 (08:30→21:17)
[2022-12-11] MEDS: carvediloL 12.5 MG TAB PO SCH ×2 (08:31→21:15)
[2022-12-11] MEDS: DOXYCYCLINE HYCLATE 100 MG CAP PO SCH ×2 (08:31→21:18)
[2022-12-11] MEDS: COLLAGENASE OINT 30 GM TUBE EXT SCH (08:31)
[2022-12-11] MEDS: CITALOPRAM 20 MG TAB PO SCH (08:32)
[2022-12-11] MEDS: ASPIRIN 81 MG ECTAB PO SCH (08:32)
[2022-12-11] MEDS: CYANOCOBALAMIN (B-12) 500 MCG TABLET PO SCH (08:32)
[2022-12-11] MEDS: DIGOXIN 0.125 MG TAB PO SCH (16:24)
[2022-12-11] MEDS: WARFARIN SOD 6 MG TAB PO SCH (16:24)
--- NOTE | 2022-12-11 18:11 | Hospitalist Progress Note ---
Date of Service December 11, 2022 Assessment & Plan (1) Decubitus ulcer of sacral area: Plan: Decubitus ulcer of sacral area adjoining right buttock stage III-IV Surrounding cellulitis around this decubital ulcer-please see the picture for more information No evidence of osteomyelitis as per CT scan Will ask for surgical evaluation for possible debridement Follow blood cultures, wound culture, start on IV antibiotic- given cefepime IV in the ER, add doxycycline IV, check nasal MRSA swab WBC 11.89, afebrile Wound care nurse consult, frequent turn/repo for pressure offloading Tapia catheter due to needs for self catheterization twice daily. Pt reports this has been going on for multiple years. Continue current antibiotic Appreciate surgery input and recommendation-status post debridement done on 12/05/2022 Appreciate wound care input as well Denies any pain in the sacral area and has been maintaining postures to avoid any significant pressure over the sacral area The wound is healing nicely-please look at the picture of the wound to have a clear understanding about the wound No superimposed infection but the wound itself is very deep and she will take long time to have any healing No pain in the wound and no other signs of infection Continue wound care dressing as advised Wound culture is growing Pseudomonas aeruginosa and group C beta strep Has been getting intravenous cefepime and will continue as long as she remains in the hospital EKG did not show any QT prolongation Plan to start Cipro/Levaquin and ampicillin to finish the course at discharge We will continue antibiotic for a total of 10 days Complaining of headache since fall No other acute associated symptoms Will have CT scan without contrast CT scan of the head has been negative for any significant findings History of neck surgery and the patient things the pain coming from the neck Will apply Voltaren gel locally Headache seems to better Will give Benadryl for sleep tonight (2) COVID-19 virus infection: Plan: Remains asymptomatic except diarrhea Noted to be hypoxic at 1.1 admission Denies any cough and no respiratory symptoms Saturating normally on room air Does not require any treatment for COVID-19 virus infection Will require to finish the quarantine in the hospital Heart COVID was diagnosed on of this month She will need to be quadrant timed to heal of this month Remains free from any COVID symptoms Will be off isolation on (3) Fecal retention: Plan: Has had liquid bowel movement She has been feeling much better and denies any abdominal distention or discomfort No nausea no vomiting Continue with bowel regimen (4) Atrial fibrillation: Plan: Chronic atrial fibrillation -INR noted to be 1.7, trend with a.m. labs, subtherapeutic -Outpatient Coumadin dosing is 6 mg daily except 3 mg on Wednesdays and Saturdays, she was instructed to take half tablet as her INR was over 3 earlier this week. She typically does home Coumadin checks on Wednesdays. -Concern for possible PE with subtherapeutic Coumadin dosing and bout of hypoxia experienced in the CT scanner, checking CT angio now - no current sats reviewed showing hypoxia. Pt is currently on 2 L with sats at 99%. Denies respiratory sx. -Check digoxin level-normal at 1.2 -Trend trop-normal, no need to trend -INR is 2.2 as of 12/06/2022 (5) HTN (hypertension): Plan: Remains on the lower side (6) HLD (hyperlipidemia): Plan: - Cont carvedilol, digoxin, losartan, triamterene/HCTZ for now (7) DM type 2 (diabetes mellitus, type 2): Plan: -Hold pioglitazone, metformin with receiving contrast CTs -ISS with Accu-Cheks ACHS -Check A1c with a.m. labs DVT PPx: - teds, scds, Coumadin CODE: Full code Dispo: From home, likely to remain in the hospital until her quarantine time is over Awaiting placement Admission and Anticipated Discharge Date Admission Date: December 04, 2022 Subjective 12/06/2022 The patient was seen and examined in medical telemetry unit and in the COVID room She has had wound debridement from the sacral area today Denies any respiratory symptoms and no more diarrhea 12/07/2022 The patient was seen and examined in the medical telemetry unit and in the COVID room She complains to have some headache but denies any respiratory symptoms 12/08/2022 The patient was seen and examined in medical telemetry unit and in the COVID room She has been feeling much better Her headache is generally controlled with Tylenol Denies any fever and or chills 12/09/2022 The patient was seen and examined in medical telemetry unit and in the COVID room Complains to have ongoing headache following the fall at home No associated symptoms of blurred vision, numbness or tingling in the extremities, any nausea and or vomiting Denies any other symptoms 12/10/2022 The patient was seen and examined in medical telemetry unit and in the COVID room She has been complaining of neck ache and headache Denies any respiratory symptoms and does not have any diarrhea 12/11/2022 The patient was seen and examined in medical telemetry unit and in the COVRI room She did not sleep last night and does not like melatonin Denies any respiratory symptoms No abdominal pain, nausea or vomiting Review of Systems Review of Systems: All systems reviewed and are unremarkable except as noted below Physical Exam Physical Exam: Lying in bed comfortably Constitutional: well developed, well nourished, + ill appearing and average body habitus Eyes: PERRL, conjunctivae normal, anicteric sclerae ENMT: external ear and nose normal, oropharynx normal Neck: trachea midline, no thyromegaly Respiratory: no respiratory distress Auscultation: + diminished lung sounds and + crackles (Minimal crackles at the bases) Cardiovascular: Rate/Rhythm: regular rate and regular rhythm; not tachycardic Heart Sounds: normal S1 and normal S2; no murmur Extremities: no edema Gastrointestinal (Abdomen): Inspection/Auscultation: normal bowel sounds; abdomen not distended Percussion/Palpation: abdomen soft; abdomen nontender Musculoskeletal: No acute arthritis involving any joint Neurologic: normal touch/pain/proprioception and moves all extremities; no focal motor deficits Speech / Cognition: normal speech Psychiatric: A+Ox3, euthymic affect Lymphatic: no cervical or axillary lymphadenopathy Results & Data Results & Data ([facility]) Vital Signs (Past 12 Hours) Vital Signs Temp Pulse Pulse Resp BP Pulse Ox O2 Del Method 12/11/22 16:24 67 12/11/22 15:38 36.9 C 61 20 127/70 95 Room Air 12/11/22 15:14 70 12/11/22 11:48 37.1 C 59 L 20 148/73 H 98 Room Air 12/11/22 07:09 64 Laboratory Results Short CBC 12/11/22 Range/Units 07:14 WBC 8.21 (4.8-10.8) K/ul Hgb 11.4 L (12.0-16.0) g/dl Hct 35.6 L (37.0-47.0) % Plt Count 280 (130-400) K/uL BMP 12/11/22 07:14 Sodium 137 Potassium 4.3 Chloride 104 Carbon Dioxide 30 BUN 33 H Creatinine 0.82 Glucose 90 Calcium 9.4 Liver Function 12/11/22 Range/Units 07:14 Total Bilirubin 0.5 (0.2-1.0) mg/dl AST 14 (13-39) U/L ALT 14 (7-52) U/L Alkaline Phosphatase 29 L (34-104) U/L Albumin 3.6 (3.4-5.0) gm/dl Medications Administered Current Inpatient Medications Acetaminophen (Acetaminophen 325 Mg Tab) 650 mg PO Q4H PRN PRN Reason: Pain or Fever Stop: 01/04/23 01:30 Last Admin: 12/09/22 22:55 Dose: 650 mg Aspirin (Aspirin 81 Mg Ectab) 81 mg PO DAILY [facility] Stop: 01/04/23 08:59 Last Admin: 12/11/22 08:32 Dose: 81 mg Carvedilol (Carvedilol 12.5 Mg Tab) 12.5 mg PO BID [facility] Stop: 01/04/23 01:30 Last Admin: 12/11/22 08:31 Dose: 12.5 mg Citalopram Hydrobromide (Citalopram 20 Mg Tab) 20 mg PO DAILY [facility]KE Stop: 01/04/23 08:59 Last Admin: 12/11/22 08:32 Dose: 20 mg Collagenase (Collagenase Oint 30 Gm Tube) 1 appln EXT DAILY [facility]KE Stop: 01/06/23 08:59 Last Admin: 12/11/22 08:31 Dose: 1 appln Cyanocobalamin (Cyanocobalamin (B-12) 500 Mcg Tablet) 1,000 mcg PO DAILY [facility]KE Stop: 01/04/23 08:59 Last Admin: 12/11/22 08:32 Dose: 1,000 mcg Dextrose (Dextrose 50% 50 Ml Syringe) 25 - 50 ml IV UD PRN; Protocol PRN Reason: Hypoglycemia Protocol Stop: 01/04/23 01:30 Diclofenac Sodium (Diclofenac Sod 1% Gel 100 Gm Tube) 2 gm EXT TID MIKE; Protocol Stop: 01/09/23 13:59 Last Admin: 12/11/22 13:35 Dose: 2 gm Digoxin (Digoxin 0.125 Mg Tab) 0.125 mg PO DAILY@1600 [facility] Stop: 01/04/23 15:59 Last Admin: 12/11/22 16:24 Dose: 0.125 mg Diphenhydramine HCl (Diphenhydramine Capsule 25 Mg Cap) 50 mg PO HS [facility] Stop: 01/10/23 20:59 Doxycycline Hyclate (Doxycycline Hyclate 100 Mg Cap) 100 mg PO BID MIKE Stop: 12/12/22 08:59 Last Admin: 12/11/22 08:31 Dose: 100 mg Gabapentin (Gabapentin 100 Mg Cap) 100 mg PO HS [facility] Stop: 01/04/23 20:59 Last Admin: 12/10/22 21:44 Dose: 100 mg Glucagon (Glucagon For Inj 1 Mg Vial) 1 mg SQ UD PRN; Protocol PRN Reason: Hypoglycemia Protocol Stop: 01/04/23 01:30 Glucose (Glucose 40% Gel 15 Gm Tube) 15 - 30 gm PO UD PRN; Protocol PRN Reason: Hypoglycemia Protocol Stop: 01/04/23 01:30 Glucose (Glucose 10 Tab/Tube) 4 - 8 tab PO UD PRN; Protocol PRN Reason: Hypoglycemia Treatment Stop: 01/04/23 01:30 Promethazine HCl 12.5 mg/ (Sodium Chloride) 50.5 mls @ 202 mls/hr IV Q6H PRN PRN Reason: Nausea And Vomiting Stop: 01/04/23 01:30 Insulin Aspart (Insulin Aspart Per Unit) 0 units SC ACHS [facility] Stop: 01/04/23 01:30 Last Admin: 12/11/22 16:46 Dose: 4 units Losartan Potassium (Losartan Potassium 50 Mg Tab) 50 mg PO DAILY [facility] Stop: 01/04/23 08:59 Last Admin: 12/11/22 08:29 Dose: 50 mg Miscellaneous (Carbohydrates For Hypoglycemia ) 15 - 30 gm PO UD PRN PRN Reason: Hypoglycemia Protocol Stop: 01/04/23 01:30 Senna/Docusate Sodium (Docusate Sodium/Senna 50/8.6mg Tab) 1 tab PO BID [facility] Stop: 01/04/23 05:14 Last Admin: 12/11/22 08:30 Dose: 1 tab Tramadol HCl (Tramadol Hcl 50 Mg Tablet) 25 - 50 mg PO Q4H PRN PRN Reason: Pain Stop: 01/04/23 01:30 Last Admin: 12/05/22 21:09 Dose: 50 mg Warfarin Sodium (Warfarin Sod 6 Mg Tab) 6 mg PO DAILY@1600 [facility] Stop: 01/04/23 15:59 Last Admin: 12/11/22 16:24 Dose: 6 mg
[2022-12-11] MEDS: diphenhydrAMINE Capsule 25 MG CAP PO SCH (21:17)
[2022-12-11] MEDS: GABAPENTIN 100 MG CAP PO SCH (21:18)
[2022-12-11] MEDS: ACETAMINOPHEN 325 MG TAB PO PRN (23:11)
[2022-12-12] MEDS: INSULIN ASPART PER UNIT SC SCH ×4 (06:17→20:39)
[2022-12-12] MEDS: ASPIRIN 81 MG ECTAB PO SCH (09:08)
[2022-12-12] MEDS: CYANOCOBALAMIN (B-12) 500 MCG TABLET PO SCH (09:08)
[2022-12-12] MEDS: carvediloL 12.5 MG TAB PO SCH ×2 (09:08→21:20)
[2022-12-12] MEDS: CITALOPRAM 20 MG TAB PO SCH (09:08)
[2022-12-12] MEDS: LOSARTAN POTASSIUM 50 MG TAB PO SCH (09:08)
[2022-12-12] MEDS: DICLOFENAC SOD 1% GEL 100 GM TUBE EXT SCH ×3 (09:09→21:20)
[2022-12-12] MEDS: DOCUSATE SODIUM/SENNA 50/8.6MG TAB PO SCH ×2 (09:09→21:18)
[2022-12-12] MEDS: COLLAGENASE OINT 30 GM TUBE EXT SCH (09:09)
[2022-12-12 10:42] LABS: INR 1.7 (0.9-1.1); Prothrombin Time 17.2 Seconds (9.0-12.0)
--- NOTE | 2022-12-12 17:18 | Hospitalist Progress Note ---
Date of Service December 12, 2022 Assessment & Plan (1) Decubitus ulcer of sacral area: Plan: Decubitus ulcer of sacral area adjoining right buttock stage III-IV Surrounding cellulitis around this decubital ulcer-please see the picture for more information No evidence of osteomyelitis as per CT scan Will ask for surgical evaluation for possible debridement Follow blood cultures, wound culture, start on IV antibiotic- given cefepime IV in the ER, add doxycycline IV, check nasal MRSA swab WBC 11.89, afebrile Wound care nurse consult, frequent turn/repo for pressure offloading Tapia catheter due to needs for self catheterization twice daily. Pt reports this has been going on for multiple years. Continue current antibiotic Appreciate surgery input and recommendation-status post debridement done on 12/05/2022 Appreciate wound care input as well Denies any pain in the sacral area and has been maintaining postures to avoid any significant pressure over the sacral area The wound is healing nicely-please look at the picture of the wound to have a clear understanding about the wound No superimposed infection but the wound itself is very deep and she will take long time to have any healing No pain in the wound and no other signs of infection Continue wound care dressing as advised Wound culture is growing Pseudomonas aeruginosa and group C beta strep Has been getting intravenous cefepime and will continue as long as she remains in the hospital EKG did not show any QT prolongation Plan to start Cipro/Levaquin and ampicillin to finish the course at discharge We will continue antibiotic for a total of 10 days Will extend the antibiotics with oral for 5 more days Complaining of headache since fall No other acute associated symptoms Will have CT scan without contrast CT scan of the head has been negative for any significant findings History of neck surgery and the patient things the pain coming from the neck Will apply Voltaren gel locally Headache seems to better Will give Benadryl for sleep tonight Had a good sleep last night (2) COVID-19 virus infection: Plan: Remains asymptomatic except diarrhea Noted to be hypoxic at 1.1 admission Denies any cough and no respiratory symptoms Saturating normally on room air Does not require any treatment for COVID-19 virus infection Will require to finish the quarantine in the hospital Heart COVID was diagnosed on of this month She will need to be quadrant timed to heal of this month Remains free from any COVID symptoms She can be taken to the facility with COVID positivity only 2 days left of isolation (3) Fecal retention: Plan: Has had liquid bowel movement She has been feeling much better and denies any abdominal distention or discomfort No nausea no vomiting Continue with bowel regimen (4) Atrial fibrillation: Plan: Chronic atrial fibrillation -INR noted to be 1.7, trend with a.m. labs, subtherapeutic -Outpatient Coumadin dosing is 6 mg daily except 3 mg on Wednesdays and Saturdays, she was instructed to take half tablet as her INR was over 3 earlier this week. She typically does home Coumadin checks on Wednesdays. -Concern for possible PE with subtherapeutic Coumadin dosing and bout of hypoxia experienced in the CT scanner, checking CT angio now - no current sats reviewed showing hypoxia. Pt is currently on 2 L with sats at 99%. Denies respiratory sx. -Check digoxin level-normal at 1.2 -Trend trop-normal, no need to trend -INR is 2.2 as of 12/06/2022 -INR is 1.7 today (5) HTN (hypertension): Plan: Remains on the lower side (6) HLD (hyperlipidemia): Plan: - Cont carvedilol, digoxin, losartan, triamterene/HCTZ for now (7) DM type 2 (diabetes mellitus, type 2): Plan: -Hold pioglitazone, metformin with receiving contrast CTs -ISS with Accu-Cheks ACHS -Check A1c with a.m. labs DVT PPx: - teds, scds, Coumadin CODE: Full code Dispo: From home, likely to remain in the hospital until her quarantine time is over Awaiting placement Admission and Anticipated Discharge Date Admission Date: December 04, 2022 Subjective 12/06/2022 The patient was seen and examined in medical telemetry unit and in the COVID room She has had wound debridement from the sacral area today Denies any respiratory symptoms and no more diarrhea 12/07/2022 The patient was seen and examined in the medical telemetry unit and in the COVID room She complains to have some headache but denies any respiratory symptoms 12/08/2022 The patient was seen and examined in medical telemetry unit and in the COVID room She has been feeling much better Her headache is generally controlled with Tylenol Denies any fever and or chills 12/09/2022 The patient was seen and examined in medical telemetry unit and in the COVID room Complains to have ongoing headache following the fall at home No associated symptoms of blurred vision, numbness or tingling in the extremities, any nausea and or vomiting Denies any other symptoms 12/10/2022 The patient was seen and examined in medical telemetry unit and in the COVID room She has been complaining of neck ache and headache Denies any respiratory symptoms and does not have any diarrhea 12/11/2022 The patient was seen and examined in medical telemetry unit and in the COVID room She did not sleep last night and does not like melatonin Denies any respiratory symptoms No abdominal pain, nausea or vomiting 12/12/2022 The patient was seen and examined in medical telemetry unit and in the COVID room She has had a good sleep last night with Benadryl and wants to continue Denies any respiratory symptoms No pain at the back, no fever and or chills Review of Systems Review of Systems: All systems reviewed and are unremarkable except as noted below Physical Exam Physical Exam: Lying in bed comfortably Constitutional: well developed, well nourished, + ill appearing and average body habitus Eyes: PERRL, conjunctivae normal, anicteric sclerae ENMT: external ear and nose normal, oropharynx normal Neck: trachea midline, no thyromegaly Respiratory: no respiratory distress Auscultation: + diminished lung sounds and + crackles (Minimal crackles at the bases) Cardiovascular: Rate/Rhythm: regular rate and regular rhythm; not tachycardic Heart Sounds: normal S1 and normal S2; no murmur Extremities: no edema Gastrointestinal (Abdomen): Inspection/Auscultation: normal bowel sounds; abdomen not distended Percussion/Palpation: abdomen soft; abdomen nontender Neurologic: normal touch/pain/proprioception and moves all extremities; no focal motor deficits Speech / Cognition: normal speech Psychiatric: A+Ox3, euthymic affect Lymphatic: no cervical or axillary lymphadenopathy Results & Data Results & Data ([facility]) Vital Signs (Past 12 Hours) Vital Signs Temp Pulse Pulse Resp BP Pulse Ox Pulse Ox 12/12/22 15:20 74 12/12/22 14:17 36.8 C 67 20 137/72 95 12/12/22 10:00 98 12/12/22 08:39 62 02/21/23 07:32 37.1 C 67 18 145/77 H 95 O2 Del Method O2 Del Method 12/12/22 15:20 12/12/22 14:17 Room Air 12/12/22 10:00 Room Air 12/12/22 08:39 12/12/22 07:32 Room Air Medications Administered Current Inpatient Medications Acetaminophen (Acetaminophen 325 Mg Tab) 650 mg PO Q4H PRN PRN Reason: Pain or Fever Stop: 01/04/23 01:30 Last Admin: 12/11/22 23:11 Dose: 650 mg Aspirin (Aspirin 81 Mg Ectab) 81 mg PO DAILY MIKE Stop: 01/04/23 08:59 Last Admin: 12/12/22 09:08 Dose: 81 mg Carvedilol (Carvedilol 12.5 Mg Tab) 12.5 mg PO BID [facility] Stop: 01/04/23 01:30 Last Admin: 12/12/22 09:08 Dose: 12.5 mg Citalopram Hydrobromide (Citalopram 20 Mg Tab) 20 mg PO DAILY [facility] Stop: 01/04/23 08:59 Last Admin: 12/12/22 09:08 Dose: 20 mg Collagenase (Collagenase Oint 30 Gm Tube) 1 appln EXT DAILY [facility] Stop: 01/06/23 08:59 Last Admin: 12/12/22 09:09 Dose: 1 appln Cyanocobalamin (Cyanocobalamin (B-12) 500 Mcg Tablet) 1,000 mcg PO DAILY [facility] Stop: 01/04/23 08:59 Last Admin: 12/12/22 09:08 Dose: 1,000 mcg Dextrose (Dextrose 50% 50 Ml Syringe) 25 - 50 ml IV UD PRN; Protocol PRN Reason: Hypoglycemia Protocol Stop: 01/04/23 01:30 Diclofenac Sodium (Diclofenac Sod 1% Gel 100 Gm Tube) 2 gm EXT TID MIKE; Protocol Stop: 01/09/23 13:59 Last Admin: 12/12/22 14:01 Dose: 2 gm Digoxin (Digoxin 0.125 Mg Tab) 0.125 mg PO DAILY@1600 [facility] Stop: 01/04/23 15:59 Last Admin: 12/11/22 16:24 Dose: 0.125 mg Diphenhydramine HCl (Diphenhydramine Capsule 25 Mg Cap) 50 mg PO HS [facility] Stop: 01/10/23 20:59 Last Admin: 12/11/22 21:17 Dose: 50 mg Gabapentin (Gabapentin 100 Mg Cap) 100 mg PO HS [facility] Stop: 01/04/23 20:59 Last Admin: 12/11/22 21:18 Dose: 100 mg Glucagon (Glucagon For Inj 1 Mg Vial) 1 mg SQ UD PRN; Protocol PRN Reason: Hypoglycemia Protocol Stop: 01/04/23 01:30 Glucose (Glucose 40% Gel 15 Gm Tube) 15 - 30 gm PO UD PRN; Protocol PRN Reason: Hypoglycemia Protocol Stop: 01/04/23 01:30 Glucose (Glucose 10 Tab/Tube) 4 - 8 tab PO UD PRN; Protocol PRN Reason: Hypoglycemia Treatment Stop: 01/04/23 01:30 Promethazine HCl 12.5 mg/ (Sodium Chloride) 50.5 mls @ 202 mls/hr IV Q6H PRN PRN Reason: Nausea And Vomiting Stop: 01/04/23 01:30 Insulin Aspart (Insulin Aspart Per Unit) 0 units SC ACHS [facility] Stop: 01/04/23 01:30 Last Admin: 12/12/22 17:05 Dose: Not Given Losartan Potassium (Losartan Potassium 50 Mg Tab) 50 mg PO DAILY [facility] Stop: 01/04/23 08:59 Last Admin: 12/12/22 09:08 Dose: 50 mg Miscellaneous (Carbohydrates For Hypoglycemia ) 15 - 30 gm PO UD PRN PRN Reason: Hypoglycemia Protocol Stop: 01/04/23 01:30 Senna/Docusate Sodium (Docusate Sodium/Senna 50/8.6mg Tab) 1 tab PO BID [facility] Stop: 01/04/23 05:14 Last Admin: 12/12/22 09:09 Dose: 1 tab Tramadol HCl (Tramadol Hcl 50 Mg Tablet) 25 - 50 mg PO Q4H PRN PRN Reason: Pain Stop: 01/04/23 01:30 Last Admin: 12/05/22 21:09 Dose: 50 mg Warfarin Sodium (Warfarin Sod 6 Mg Tab) 6 mg PO DAILY@1600 [facility] Stop: 01/04/23 15:59 Last Admin: 12/11/22 16:24 Dose: 6 mg
[2022-12-12] MEDS: DIGOXIN 0.125 MG TAB PO SCH (18:01)
[2022-12-12] MEDS: WARFARIN SOD 6 MG TAB PO SCH (18:01)
[2022-12-12] MEDS ORDERED: AMOXICILLIN 500 MG CAP PO SCH (21:00)
[2022-12-12] MEDS: GABAPENTIN 100 MG CAP PO SCH (21:18)
[2022-12-12] MEDS: diphenhydrAMINE Capsule 25 MG CAP PO SCH (21:19)
[2022-12-12] MEDS: CIPROFLOXACIN 500 MG TAB PO SCH (21:19)
[2022-12-12] MEDS: AMOXICILLIN 500 MG CAP PO SCH (21:19)
[2022-12-12] MEDS: ACETAMINOPHEN 325 MG TAB PO PRN (21:20)
[2022-12-13 07:51] LABS: Basophils # (auto) 0.07 K/uL (0-0.2); Basophils % (auto) 0.8 %; Eosinophils % (auto) 4.5 %; Hematocrit (blood only) 34.5 % (37.0-47.0); Hemoglobin 11.3 g/dl (12.0-16.0); Immature Granulocytes # (auto) 0.08 K/uL (0.01-0.20); Immature Granulocytes % (auto) 0.9 %; Lymphocytes # (auto) 2.85 K/uL (1.2-3.4); Lymphocytes % (auto) 31.8 %; Mean Corpuscular Hemoglobin 28.9 pg (25.0-34.0); Mean Corpuscular Hgb Conc 32.8 g/dL (32.0-36.0); Mean Corpuscular Volume 88.2 fL (80.0-100.0); Mean Platelet Volume 9.5 fL (9.4-12.4); Monocytes # (auto) 0.84 K/uL (0.11-0.59); Monocytes % (auto) 9.4 %; Neutrophils # (auto) 4.71 K/uL (1.40-6.50); Neutrophils % (auto) 52.6 %; Platelet Count 286 K/uL (130-400); RDW Coefficient of Variation 14.8 % (11.5-14.5); RDW Standard Deviation 47.5 fL (36.4-46.3); Red Blood Count 3.91 M/uL (4.20-5.40); White Blood Count 8.95 K/ul (4.8-10.8)
[2022-12-13 08:09] LABS: BUN Creatinine Ratio 47.6 (10-20); Calcium 9.5 mg/dl (8.5-10.1); Creatinine Clr Calc Pharmacy 59.9 ml/min; Est GFR (African American) 76.1 ml/min; Est GFR (Non-African American) 65.6 ml/min; Potassium 4.3 mmol/L (3.5-5.1)
[2022-12-13 08:16] LABS: INR 1.7 (0.9-1.1); Prothrombin Time 17.3 Seconds (9.0-12.0)
[2022-12-13] MEDS: carvediloL 12.5 MG TAB PO SCH ×2 (08:34→22:10)
[2022-12-13] MEDS: ASPIRIN 81 MG ECTAB PO SCH (08:35)
[2022-12-13] MEDS: CYANOCOBALAMIN (B-12) 500 MCG TABLET PO SCH (08:35)
[2022-12-13] MEDS: AMOXICILLIN 500 MG CAP PO SCH ×2 (08:35→22:09)
[2022-12-13] MEDS: DOCUSATE SODIUM/SENNA 50/8.6MG TAB PO SCH ×2 (08:35→22:10)
[2022-12-13] MEDS: DICLOFENAC SOD 1% GEL 100 GM TUBE EXT SCH ×3 (08:35→22:09)
[2022-12-13] MEDS: CIPROFLOXACIN 500 MG TAB PO SCH ×2 (08:35→22:09)
[2022-12-13] MEDS: CITALOPRAM 20 MG TAB PO SCH (08:35)
[2022-12-13] MEDS: LOSARTAN POTASSIUM 50 MG TAB PO SCH (08:35)
[2022-12-13] MEDS: COLLAGENASE OINT 30 GM TUBE EXT SCH (08:40)
[2022-12-13] MEDS: INSULIN ASPART PER UNIT SC SCH ×4 (09:12→22:10)
[2022-12-13] MEDS: WARFARIN SOD 6 MG TAB PO SCH (17:07)
[2022-12-13] MEDS: DIGOXIN 0.125 MG TAB PO SCH (17:07)
--- NOTE | 2022-12-13 17:26 | Hospitalist Progress Note ---
Date of Service December 13, 2022 Assessment & Plan (1) Decubitus ulcer of sacral area: (2) COVID-19 virus infection: Plan: Per Dr. Lizama's notes with addendum: (1) Decubitus ulcer of sacral area: Plan: Decubitus ulcer of sacral area adjoining right buttock stage III-IV Surrounding cellulitis around this decubital ulcer-please see the picture for more information No evidence of osteomyelitis as per CT scan Will ask for surgical evaluation for possible debridement Follow blood cultures, wound culture, start on IV antibiotic- given cefepime IV in the ER, add doxycycline IV, check nasal MRSA swab WBC 11.89, afebrile Wound care nurse consult, frequent turn/repo for pressure offloading Tapia catheter due to needs for self catheterization twice daily. Pt reports this has been going on for multiple years. Continue current antibiotic Appreciate surgery input and recommendation-status post debridement done on 12/05/2022 Appreciate wound care input as well Denies any pain in the sacral area and has been maintaining postures to avoid any significant pressure over the sacral area The wound is healing nicely-please look at the picture of the wound to have a clear understanding about the wound No superimposed infection but the wound itself is very deep and she will take long time to have any healing No pain in the wound and no other signs of infection Continue wound care dressing as advised Wound culture is growing Pseudomonas aeruginosa and group C beta strep Has been getting intravenous cefepime and will continue as long as she remains in the hospital EKG did not show any QT prolongation Plan to start Cipro/Levaquin and ampicillin to finish the course at discharge We will continue antibiotic for a total of 10 days Will extend the antibiotics with oral for 5 more days 12/13 Stable overall Minimal discomfort over sacral area Afebrile Continue ciprofloxacin plus amoxicillin day to complete 4 more days Complaining of headache since fall No other acute associated symptoms Will have CT scan without contrast CT scan of the head has been negative for any significant findings History of neck surgery and the patient things the pain coming from the neck Will apply Voltaren gel locally Headache seems to better Will give Benadryl for sleep tonight Had a good sleep last night 12/13 No headache Sleeping well for the past 2 nights next (2) COVID-19 virus infection: Plan: Remains asymptomatic except diarrhea Noted to be hypoxic at 1.1 admission Denies any cough and no respiratory symptoms Saturating normally on room air Does not require any treatment for COVID-19 virus infection Will require to finish the quarantine in the hospital Heart DANIS was diagnosed on of this month She will need to be quadrant timed to heal of this month Remains free from any COVID symptoms She can be taken to the facility with COVID positivity only 2 days left of isolation 12/13 Saturating well on room air Denies shortness of breath or cough Last day of isolation protocol today (3) Fecal retention: Plan: Has had liquid bowel movement She has been feeling much better and denies any abdominal distention or discomfort No nausea no vomiting Continue with bowel regimen 12/13 Resolved Continue Senokot-S twice a day (4) Atrial fibrillation: Plan: Chronic atrial fibrillation -INR noted to be 1.7, trend with a.m. labs, subtherapeutic -Outpatient Coumadin dosing is 6 mg daily except 3 mg on Wednesdays and Saturdays, she was instructed to take half tablet as her INR was over 3 earlier this week. She typically does home Coumadin checks on Wednesdays. -Concern for possible PE with subtherapeutic Coumadin dosing and bout of hypoxia experienced in the CT scanner, checking CT angio now - no current sats reviewed showing hypoxia. Pt is currently on 2 L with sats at 99%. Denies respiratory sx. -Check digoxin level-normal at 1.2 -Trend trop-normal, no need to trend -INR is 2.2 as of 12/06/2022 -INR is 1.7 today 12/13 INR 1.7 Continue Coumadin 6 mg daily (5) HTN (hypertension): Plan: Blood pressure stable overall today Continue to monitor (6) HLD (hyperlipidemia): Plan: - Cont carvedilol, digoxin, losartan, triamterene/HCTZ for now (7) DM type 2 (diabetes mellitus, type 2): Plan: -Hold pioglitazone, metformin with receiving contrast CTs -ISS with Accu-Cheks ACHS -Check A1c with a.m. labs A1c 5.4 BSG 99-115 DVT PPx: - teds, scds, Coumadin CODE: Full code Dispo: Awaiting to transition to acute rehab Admission and Anticipated Discharge Date Admission Date: December 04, 2022 Subjective Follow-up for sacral decubitus ulcer, COVID-19 infection, etc. Seen sitting up in bed, not in distress, comfortable States she feels fine overall Minimal discomfort over the sacral area No fevers or chills No shortness of breath, cough, chest pain, leg pain No other symptoms Review of Systems Review of Systems: all noted and negative except for above Physical Exam Physical Exam: General- oriented x 3, not in distress, speaks in sentences with no effort or accessory muscle use Eyes- anicteric Neck- no JVD Lungs- clear breath sounds bilaterally, no rales/wheezes Heart- normal rate, regular rhythm; no murmurs Abdomen- normal bowel sounds, nondistended, soft, nontender Extremities- no pretibial edema, no calf tenderness Neuro- alert, oriented x 3; no gross focal neurologic deficits Skin- warm & dry Results & Data Results & Data ([facility]) Vital Signs (Past 12 Hours) Vital Signs Temp Pulse Pulse Resp BP Pulse Ox Pulse Ox 12/13/22 16:18 68 12/13/22 15:11 36.7 C 78 16 123/70 97 12/13/22 11:39 36.9 C 77 16 136/69 93 12/13/22 09:47 98 12/13/22 08:01 36.8 C 71 16 146/73 H 97 12/13/22 07:15 72 O2 Del Method O2 Del Method 12/13/22 16:18 12/13/22 15:11 Room Air 12/13/22 11:39 Room Air 12/13/22 09:47 Room Air 12/13/22 08:01 Room Air 12/13/22 07:15 all noted and reviewed including below
[2022-12-13] MEDS: GABAPENTIN 100 MG CAP PO SCH (22:09)
[2022-12-13] MEDS: diphenhydrAMINE Capsule 25 MG CAP PO SCH (22:09)
[2022-12-13] MEDS: ACETAMINOPHEN 325 MG TAB PO PRN (22:21)
[2022-12-14 08:33] LABS: INR 1.5 (0.9-1.1); Prothrombin Time 15.9 Seconds (9.0-12.0)
[2022-12-14] MEDS: INSULIN ASPART PER UNIT SC SCH ×4 (08:33→20:50)
[2022-12-14] MEDS: AMOXICILLIN 500 MG CAP PO SCH ×2 (08:37→22:00)
[2022-12-14] MEDS: carvediloL 12.5 MG TAB PO SCH ×2 (08:37→22:00)
[2022-12-14] MEDS: DOCUSATE SODIUM/SENNA 50/8.6MG TAB PO SCH ×2 (08:37→22:00)
[2022-12-14] MEDS: CIPROFLOXACIN 500 MG TAB PO SCH ×2 (08:38→22:00)
[2022-12-14] MEDS: ASPIRIN 81 MG ECTAB PO SCH (08:38)
[2022-12-14] MEDS: LOSARTAN POTASSIUM 50 MG TAB PO SCH (08:38)
[2022-12-14] MEDS: CITALOPRAM 20 MG TAB PO SCH (08:38)
[2022-12-14] MEDS: CYANOCOBALAMIN (B-12) 500 MCG TABLET PO SCH (08:39)
[2022-12-14] MEDS: DICLOFENAC SOD 1% GEL 100 GM TUBE EXT SCH ×3 (08:40→22:00)
[2022-12-14] MEDS: COLLAGENASE OINT 30 GM TUBE EXT SCH (09:22)
--- NOTE | 2022-12-14 14:09 | Hospitalist Progress Note ---
Date of Service December 14, 2022 Assessment & Plan (1) Decubitus ulcer of sacral area: (2) COVID-19 virus infection: Plan: Per Dr. Lizama's notes with addendum: (1) Decubitus ulcer of sacral area: Plan: Decubitus ulcer of sacral area adjoining right buttock stage III-IV Surrounding cellulitis around this decubital ulcer-please see the picture for more information No evidence of osteomyelitis as per CT scan Will ask for surgical evaluation for possible debridement Follow blood cultures, wound culture, start on IV antibiotic- given cefepime IV in the ER, add doxycycline IV, check nasal MRSA swab WBC 11.89, afebrile Wound care nurse consult, frequent turn/repo for pressure offloading Tapia catheter due to needs for self catheterization twice daily. Pt reports this has been going on for multiple years. Continue current antibiotic Appreciate surgery input and recommendation-status post debridement done on 12/05/2022 Appreciate wound care input as well Denies any pain in the sacral area and has been maintaining postures to avoid any significant pressure over the sacral area The wound is healing nicely-please look at the picture of the wound to have a clear understanding about the wound No superimposed infection but the wound itself is very deep and she will take long time to have any healing No pain in the wound and no other signs of infection Continue wound care dressing as advised Wound culture is growing Pseudomonas aeruginosa and group C beta strep Has been getting intravenous cefepime and will continue as long as she remains in the hospital EKG did not show any QT prolongation Plan to start Cipro/Levaquin and ampicillin to finish the course at discharge We will continue antibiotic for a total of 10 days Will extend the antibiotics with oral for 5 more days 12/13 Stable overall Minimal discomfort over sacral area Afebrile Continue ciprofloxacin plus amoxicillin day to complete 4 more days 12/14 patient doing well continue Cipro + Amoxicilin Complaining of headache since fall No other acute associated symptoms Will have CT scan without contrast CT scan of the head has been negative for any significant findings History of neck surgery and the patient things the pain coming from the neck Will apply Voltaren gel locally Headache seems to better Will give Benadryl for sleep tonight Had a good sleep last night 12/13 No headache Sleeping well for the past 2 nights next 12/14 no headache (2) COVID-19 virus infection: Plan: Remains asymptomatic except diarrhea Noted to be hypoxic at 1.1 admission Denies any cough and no respiratory symptoms Saturating normally on room air Does not require any treatment for COVID-19 virus infection Will require to finish the quarantine in the hospital Heart COVID was diagnosed on of this month She will need to be quadrant timed to heal of this month Remains free from any COVID symptoms She can be taken to the facility with COVID positivity only 2 days left of isolation 12/13 Saturating well on room air Denies shortness of breath or cough Last day of isolation protocol today 12/14 stable no cough, dyspnea isolation removed (3) Fecal retention: Plan: Has had liquid bowel movement She has been feeling much better and denies any abdominal distention or discomfort No nausea no vomiting Continue with bowel regimen 12/13 Resolved Continue Senokot-S twice a day 12/14 resolved (4) Atrial fibrillation: Plan: Chronic atrial fibrillation -INR noted to be 1.7, trend with a.m. labs, subtherapeutic -Outpatient Coumadin dosing is 6 mg daily except 3 mg on Wednesdays and Saturdays, she was instructed to take half tablet as her INR was over 3 earlier this week. She typically does home Coumadin checks on Wednesdays. -Concern for possible PE with subtherapeutic Coumadin dosing and bout of hypoxia experienced in the CT scanner, checking CT angio now - no current sats reviewed showing hypoxia. Pt is currently on 2 L with sats at 99%. Denies respiratory sx. -Check digoxin level-normal at 1.2 -Trend trop-normal, no need to trend -INR is 2.2 as of 12/06/2022 -INR is 1.7 today 12/13 INR 1.7 Continue Coumadin 6 mg daily 12/14 INR 1.5 coumadin 10mg today INR tomorrow (5) HTN (hypertension): Plan: Blood pressure stable overall today Continue to monitor (6) HLD (hyperlipidemia): Plan: - Cont carvedilol, digoxin, losartan, triamterene/HCTZ for now (7) DM type 2 (diabetes mellitus, type 2): Plan: -Hold pioglitazone, metformin with receiving contrast CTs -ISS with Accu-Cheks ACHS -Check A1c with a.m. labs A1c 5.4 BSG 92 - 144 DVT PPx: - teds, scds, Coumadin CODE: Full code Dispo: Awaiting to transition to acute rehab Admission and Anticipated Discharge Date Admission Date: December 04, 2022 Subjective ff up for COVID 19 infection, Sacral decub ulcer with infection, etc seen resting in bed, comfortable in good spirits states she feels fine overall denies back pain no cough, dyspnea, chest pain, leg pain no other symptoms Review of Systems Review of Systems: all noted and negative except for above Physical Exam Physical Exam: General- oriented x 3, not in distress, speaks in sentences with no effort or accessory muscle use Eyes- anicteric Neck- no JVD Lungs- clear breath sounds bilaterally, no rales/wheezes Heart- normal rate, regular rhythm; no murmurs Abdomen- normal bowel sounds, nondistended, soft, nontender Extremities- no pretibial edema, no calf tenderness Neuro- alert, oriented x 3; no gross focal neurologic deficits Skin- warm & dry Results & Data Results & Data ([facility]) Vital Signs (Past 12 Hours) Vital Signs Temp Pulse Pulse Resp BP Pulse Ox O2 Del Method 12/14/22 11:47 36.1 C L 75 16 136/69 98 Room Air 12/14/22 07:15 59 L 12/14/22 09:00 Room Air 12/14/22 07:56 36.9 C 67 16 146/64 H 97 Room Air 12/14/22 03:47 36.9 C 72 18 129/69 93 Room Air all noted and reviewed including below
[2022-12-14] MEDS: DIGOXIN 0.125 MG TAB PO SCH (15:56)
[2022-12-14] MEDS ORDERED: WARFARIN SOD 10 MG TAB PO ONE (16:00)
[2022-12-14] MEDS: ACETAMINOPHEN 325 MG TAB PO PRN (21:59)
[2022-12-14] MEDS: diphenhydrAMINE Capsule 25 MG CAP PO SCH (22:00)
[2022-12-14] MEDS: GABAPENTIN 100 MG CAP PO SCH (22:00)
[2022-12-15] MEDS: carvediloL 12.5 MG TAB PO SCH (08:50)
[2022-12-15] MEDS: AMOXICILLIN 500 MG CAP PO SCH (08:50)
[2022-12-15] MEDS: DOCUSATE SODIUM/SENNA 50/8.6MG TAB PO SCH (08:51)
[2022-12-15] MEDS: LOSARTAN POTASSIUM 50 MG TAB PO SCH (08:51)
[2022-12-15] MEDS: ASPIRIN 81 MG ECTAB PO SCH (08:51)
[2022-12-15] MEDS: CYANOCOBALAMIN (B-12) 500 MCG TABLET PO SCH (08:51)
[2022-12-15] MEDS: CIPROFLOXACIN 500 MG TAB PO SCH (08:51)
[2022-12-15] MEDS: DICLOFENAC SOD 1% GEL 100 GM TUBE EXT SCH (08:51)
[2022-12-15] MEDS: INSULIN ASPART PER UNIT SC SCH ×2 (09:01→11:59)
[2022-12-15] MEDS: CITALOPRAM 20 MG TAB PO SCH (09:39)
--- NOTE | 2022-12-15 11:18 | Discharge Summary ---
Discharge Summary Date of Service December 15, 2022 Notes For Next Care Provider Please monitor INR daily and adjust Coumadin accordingly. Medication Changes From Visit Amoxicillin x2 days Ciprofloxacin x2 days Carvedilol decreased from 25 mg twice daily to 12.5 mg p.o. twice daily Admission HPI Per Admitting Provider This is an 82-year-old female with PMHx of DM type II, history of A-fib on Coumadin, HTN, CVA, DM type II, HLD, constipation, spinal stenosis and chronic back pain, who presents to the hospital with sacral wound. She notes that she has been dealing with a sacral wound of since the beginning of the COVID pandemic in spring 2019. She notes that due to her inability to walk, because of chronic back pain she spends the majority of her time seated, and uses a Hover[employer] scooter. She notes that recently the wound has been getting more painful, and seeping clear fluid and smells bad. She was supposed to have an in-home nurse be arranged, however this has not yet happened. She feels that her wound has been left unattended too long and therefore presented to the ER. She denies any fevers, chills or sweats. She denies any pus drainage from the wound. She admits that she has issues with her bowels very frequently: Constipation, fecal retention, and sometimes manually disimpact's on her own. She reports needing to self catheterize herself for urinary retention twice daily routinely, denies dysuria or hematuria. Patient drinks large amounts of water. On a daily basis she mixes mineral oil with juice to help move her b owels, which that does not work sometimes. This her son brought her here but is no longer bedside as he has gone home as it is late in the evening currently. While she was here in the ER, patient was taken to get a CT of the abdomen and pelvis where she then became acutely hypoxic while in the CT scanner. She denies any current shortness of breath, chest heaviness, cough or current respiratory illness. She admits that she was positive for COVID around 2021 but feels she is nearly back to her normal self except for a decreased appetite. She does not wear any supplemental oxygen at baseline. Admission Exam Per Admitting Provider General: awake, alert, no apparent distress, obese with BMI 31.2 Head: Normocephalic, atraumatic ENT: PERRL, EOMI, no pharyngeal exudate, mucous membranes moist Chest: Clear to auscultation, on room air, no adventitious breath sounds Cardiac: irregularly irregular, rate controlled with heart rate of 86, no murmur, no JVD, normal peripheral pulses, good capillary refill Abdominal: NABS x 4 quadrants, soft, nondistended, nontender to palpation, no re bound or guarding Back: Sacral decubitus wound grade 3, minimal surrounding erythema, foul- smelling, clear serosanguineous fluid draining from it, no purulent material Extremities: Normal inspection, no peripheral edema or erythema, calfs nontender to palpation Psych: Normal mood and affect Neuro: AAO x 3, strength intact bilaterally and rated 5/5, no motor deficits, speech is clear, no peripheral sensory deficits Principal Dx & Hospital Course #1 = Principal Diagnosis (1) Decubitus ulcer of sacral area: (2) COVID-19 virus infection: Per Dr. Lizama's notes with addendum: (1) Decubitus ulcer of sacral area: Plan: Decubitus ulcer of sacral area adjoining right buttock stage III-IV Surrounding cellulitis around this decubital ulcer= No evidence of osteomyelitis as per CT scan Appreciate surgery input and recommendation-status post debridement done on 12/05/2022 Appreciate wound care input as well Wound culture is growing Pseudomonas aeruginosa and group C beta strep received intravenous cefepime EKG did not show any QT prolongation 12/15 Stable overall Minimal discomfort over sacral area Afebrile Continue ciprofloxacin plus amoxicillin x 2 more days to complete 14-day total of antibiotics Complaining of headache since fall CT scan of the head has been negative for any significant findings History of neck surgery and the patient things the pain coming from the neck 12/15 No headache Sleeping well (2) COVID-19 virus infection: Plan: Remains asymptomatic except diarrhea Noted to be hypoxic at admission Denies any cough and no respiratory symptoms Saturating normally on room air Does not require any treatment for COVID-19 virus infection 12/15 stable no cough, dyspnea isolation removed (3) Fecal retention: Plan: Has had liquid bowel movement She has been feeling much better and denies any abdominal distention or discomfort No nausea no vomiting Continue with bowel regimen 12/14 Resolved Continue Senokot-S twice a day 12/14 resolved (4) Atrial fibrillation: Plan: Chronic atrial fibrillation -Outpatient Coumadin dosing is 6 mg daily except 3 mg on Wednesdays and Saturdays, -Concern for possible PE with subtherapeutic Coumadin dosing and bout of hypoxia experienced in the CT scanner, checking CT angio now - no current sats reviewed showing hypoxia. Pt is currently on 2 L with sats at 99%. Denies respiratory sx. -Check digoxin level-normal at 1.2 -Trend trop-becky 12/15 INR pending INR daily and adjust Coumadin accordingly (5) HTN (hypertension): Plan: Blood pressure stable overall today Continue to monitor (6) HLD (hyperlipidemia): Plan: - Cont carvedilol, digoxin, losartan, triamterene/HCTZ (7) DM type 2 (diabetes mellitus, type 2): Plan: -Continue pioglitazone, metformin A1c 5.4 DVT PPx: - teds, scds, Coumadin CODE: Full code Dispo: Transition to acute rehab Follow-up with PCP in 1 week Updated Medication List Medication Instructions Recorded Confirmed Type acetaminophen 500 mg tablet 1,000 mg PO Q6H PRN Pain 12/04/22 12/04/22 History (Tylenol Extra Strength) aspirin 81 mg tablet,delayed 81 mg PO DAILY 12/04/22 12/04/22 History release carvedilol 25 mg tablet 25 mg PO BID 12/04/22 12/04/22 History citalopram 20 mg tablet 20 mg PO DAILY 12/04/22 12/04/22 History cyanocobalamin (vitamin B-12) 100 1,000 mcg PO DAILY 12/04/22 12/04/22 History mcg tablet (Vitamin B-12) digoxin 125 mcg (0.125 mg) tablet 0.125 mg PO DAILY 12/04/22 12/04/22 History gabapentin 100 mg capsule 100 mg PO HS 12/04/22 12/04/22 History losartan 50 mg tablet 50 mg PO DAILY 12/04/22 12/04/22 History metformin 850 mg tablet 850 mg PO BID 12/04/22 12/04/22 History nitrofurantoin 100 mg PO DAILY 12/04/22 12/04/22 History monohydrate/macrocrystals 100 mg capsule pioglitazone 30 mg tablet 30 mg PO DAILY 12/04/22 12/04/22 History vit no.95-ferrous 1 tab PO DAILY 12/04/22 12/04/22 History fumarate 28 mg-folic acid 800 mcg tablet () triamterene 37.5 1 cap PO DAILY 12/04/22 12/04/22 History mg-hydrochlorothiazide 25 mg capsule warfarin 6 mg tablet (Jantoven) 3 - 6 mg PO DIRECTED 12/04/22 12/04/22 History amoxicillin 500 mg capsule 500 mg PO BID 2 days #4 caps 12/15/22 Rx carvedilol 12.5 mg tablet 12.5 mg PO BID 30 days #60 tabs 12/15/22 Rx ciprofloxacin HCl 500 mg tablet 500 mg PO BID 2 days #4 tabs 12/15/22 Rx sennosides 8.6 mg-docusate sodium 1 tab PO BID 30 days #60 tabs 12/15/22 Rx 50 mg tablet (Senokot-S) Hospital Stay Data Consultations 12/04/22 20:57 ED Decision to Admit Stat 12/05/22 15:00 Consult General Surgery Routine Diagnostic Imagining Performed 12/04/22 17:38 CT pelvis w/IV con only Stat 12/04/22 20:45 CT angio chest PE protocol Urgent 12/09/22 13:12 CT Brain [CT head/brain wo con] Urgent Pending Results Patient Have Any Pending Studies at Discharge: No Discharge Instructions Given to Patient (Per Discharging Provider) PLEASE MONITOR INR DAILY, AND ADJUST COUMADIN ACCORDINGLY. PLEASE REFER TO YOUR NEW MEDICATION LIST AND FOLLOW INSTRUCTIONS CAREFULLY. YOUR NEW MEDICATIONS INCLUDE: Amoxicillin x 2 days Ciprofloxacin x 2 days Probiotics daily for at least 1 month. Wound care daily. PLEASE CALL YOUR PRIMARY CARE PHYSICIAN OR RETURN TO THE ER IF WITH WORSENING OF SYMPTOMS, INCLUDING fever/chills, bleeding/discharge/redness/pain from the wound site, shortness of breath, cough, etc FOLLOW UP WITH PRIMARY CARE PHYSICIAN in 1 WEEK. Total Time Total Time Spent Total Time Spent (In Minutes): >30 minutes
[2022-12-15] MEDS: COLLAGENASE OINT 30 GM TUBE EXT SCH (11:55)
[2022-12-15 12:48] LABS: INR 1.5 (0.9-1.1); Prothrombin Time 16.1 Seconds (9.0-12.0)
== END 2022-12-15 13:00 | DRG 579 ==
LOC: ED 13:18 → 2W 23:05 → SUATTDRO 23:05 → 2W 12-05 01:14